=== PATIENT | male | born 1940 | race Caucasian/White ===

== ENCOUNTER 2017-05-17 10:45 | Inpatient (IN) ==
--- NOTE | 2017-05-17 11:02 | Emergency Department Note ---
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 Patients having difficulty speaking. Symptoms occurred around 0945. Patient woke up this morning without symptoms. About a quarter till 10 the noticed that he had difficulty speaking. It was snowing outside he was not able to say anything. Patient takes a baby aspirin. No history of trauma or fall. On physical exam patient has some expressive dysphasia without any focal neural deficits. No facial asymmetry. Initial NIH score 3 for dysarthria and dysphasia. Stroke alert was initiated. Patient's initial blood glucose 122. Onset of Symptoms Date: 05/17/17 Onset of Symptoms Time: 09:45 Symptom Onset Unknown: No Timing confirmed by: spouse () History of same: No Symptoms Improving: Yes On Anticoagulants: Yes (aspirin) Associated symptoms: Denies: confusion, chest pain, cough, diaphoresis, fever/ chills, headaches, loss of appetite, malaise, nausea/vomiting, seizures, shortness of breath, syncope, weakness - Related Data Home Medications: Home Medications Medication Instructions Recorded Confirmed Aspirin Enteric Coated [Aspirin EC] 162 mg PO BID 05/17/17 05/17/17 Cholecalciferol (Vitamin D3) 2,000 unit PO DAILY 05/17/17 05/17/17 [Vitamin D] Metoprolol [Lopressor] 50 mg PO BID 05/17/17 05/17/17 Pravastatin Sodium [Pravachol] 40 mg PO HS 05/17/17 05/17/17 Allergies/Adverse Reactions: Allergies Allergy/AdvReac Type Severity Reaction Status Date / Time No Known Allergies Allergy Verified 05/17/17 11:10 Limitations: ROS unobtainable due to patients medical condition Past Medical History - Past Medical History Source: obtained from family Medical history: Reports: other Psychiatric history: Reports: no psych history - Social History Smoking Status: Former smoker Smokeless Tobacco Status: No Alcohol use: Reports: none Physical Exam - General Limitations: other (expressive dysphasia, slurred speech) General appearance: alert, in no apparent distress - Head Head exam: atraumatic, normocephalic, normal inspection - Eye Eye exam: Present: normal appearance, PERRL, EOMI - ENT ENT exam: normal exam, normal oropharynx, mucous membranes moist - Expanded ENT Exam External ear exam: Present: normal external inspection Mouth exam: Present: normal external inspection, tongue normal, other (appears tongue deviates to right but able to move both directions, suspect normal anatomy) Teeth exam: Present: normal inspection Throat exam: Present: normal inspection - Neck Neck exam: Present: normal inspection, full ROM, trachea midline - Chest Chest inspection: Present: normal inspection, symmetric chest wall rise. Absent : tenderness, rash - Respiratory Respiratory exam: Present: normal lung sounds bilaterally. Absent: respiratory distress, wheezes - Cardiovascular Cardiovascular exam: Present: regular rate, normal rhythm, normal heart sounds. Absent: systolic murmur, diastolic murmur - Abdominal Exam Abdominal exam: Present: soft, Non-Tender, normal bowel sounds. Absent: tenderness, distention, guarding, rebound, rigidity - Extremities Exam Extremities exam: Present: normal inspection, full ROM. Absent: tenderness, pedal edema - Back Exam Back exam: Present: normal inspection, full ROM. Absent: tenderness - Neurological Exam Neurological exam: Present: alert, oriented X3, CN II-XII intact - Expanded Neurological Exam Patient oriented to: Present: person, place, time Speech: Present: expressive aphasia Cranial nerves: EOM function (II, III, IV, ): Normal, facial sensation (V): Normal, facial palsy (VII): Normal, gag reflex (IX): Normal, spinal accessory function (XI): Normal, tongue deviation (XII): Normal Cerebellar function: finger to nose: Normal, heel to [place]: Normal Motor strength - LUE: 5/5 Motor strength - RUE: 5/5 Motor strength - LLE: 5/5 Motor strength - RLE: 5/5 Upper motor neuron exam: jose neglect: Absent bilaterally, pronator drift: Absent bilaterally Sensory exam upper extremity: light touch: Normal Sensory exam lower extremity: light touch: Normal Coma Scale Eye Opening: Spontaneous Coma Scale Motor Response: Obeys Commands Coma Scale Verbal Response: Oriented Coma Scale Total: 15 - Psychiatric Psychiatric exam: Present: normal affect, normal mood - Skin Skin exam: Present: warm, dry, intact, normal color Course Course Narrative: 76-year-old male history of prior CVA/TIA presents with some expressive aphasia. Symptoms started within 2 hours prior to arrival. His initial NIH was scored 3. Initial head CT does not reveal any hemorrhagic stroke concern for possible chronic infarct. Reevaluation in the room patient's symptoms are improving as his words are more comprehendible. Awaiting evaluation by [facility] neurosurgery. - Consultations Consultation #1: Spoke with radiologist Dr. Cohn, chronic changes no acute infarct. Time: 11:22 Consultation #2: Spoke with [facility] neurosurgeon Dr. Rocha. 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 Patient takes Aspirin. Will speak on the telestroke Time: 11:38 Consultation #3: Spoke to the neurosurgeon from [facility] who evaluated the patient via telemedicine. NIH obtained 3. Patient speech has improved where words are becoming more clear. Because he was within the window he had recommended tPA. Discuss the risks and benefits with the patient and family. Specific numbers including a risk of 1 in 16 for head bleed with 50% of those patients who . This was discussed and from the family, patient as well as a neurosurgeon. My attending Dr. Magallanes had an even further in-depth discussion with the family. After long discussion with family and patient, the patient has decided to NOT take tPA as his symptoms are improving and NIH remains <4. He is capable of making medical decisions with his mental capacity. The family are in agreement with his decision. With shared decision making we have elected to NOT give tPA. Per the request of the neurosurgeon a CT of the head and neck ordered prior to discharge from [facility] department. Anticipate admission to internal medicine for further evaluation and workup. Additional Consultation(s): Patient admitted to hospitalist for further CVA workup. CTA neck and head reveal 50-60% stenosis of carotid arteries. Patient is in agreement with plan. Vital Signs Temperature 97.6 F 05/17/17 10:50 Pulse Rate 56 05/17/17 10:50 Respiratory Rate 18 05/17/17 10:50 Blood Pressure 167/75 05/17/17 10:50 O2 Sat by Pulse Oximetry 98 05/17/17 10:50 Temperature 97.8 F 05/17/17 19:46 Pulse Rate 52 05/17/17 19:46 Respiratory Rate 17 05/17/17 19:46 Blood Pressure 142/68 05/17/17 19:46 O2 Sat by Pulse Oximetry 97 05/17/17 19:46 Oxygen Delivery Oxygen Delivery Room Air Neuro Symptoms/Deficit - MDM Narrative Medical decision making narrative: Patient was discussed with my attending physician who agrees with ED management and final disposition. They independently evaluated the patient. Please refer to their attestation to this encounter for additional information. This note was generated by [employer] voice recognition software and as a result grammatical or spelling errors may occur using this program. - Medical Records Medical records reviewed: Yes I reviewed the patient's medical records. - Lab Data Lab results reviewed: Yes I reviewed the patient's lab results. Result diagrams: 05/17/17 11:14 05/17/17 11:14 Lab Results 05/17/17 05/17/17 05/17/17 Range/Units 10:49 11:14 11:14 WBC 8.2 (4.3-11.1) K/mcL RBC 4.96 (4.19-5.50) M/mcL Hgb 15.0 (12.9-16.9) g/dL Hct 44.3 (37.5-50.1) % MCV 89.3 (83.0-100.0) fL MCH 30.2 (28.0-33.3) pg MCHC 33.9 (31.6-35.5) g/dL RDW 13.2 (11.5-14.5) % Plt Count 148 (140-400) K/mcL MPV 11.2 (9.4-12.4) fL Immature Gran % 0.1 (0-4) % Seg Neutrophils % 52.4 % Lymphocytes % 31.2 % Monocytes % 9.5 % Eosinophils % 6.2 % Basophils % 0.6 % Neutrophils # 4.3 (1.6-8.9) K/mcL Lymphocytes # 2.6 (0.6-4.6) K/mcL Monocytes # 0.8 (0.0-1.3) K/mcL Eosinophils # 0.5 (0.0-0.6) K/mcL Basophils # 0.1 (0.0-0.2) K/mcL PT 12.1 (9.4-12.1) Seconds INR 1.1 APTT 30.4 (26.0-36.0) Seconds Sodium (136-145) mEq/L Potassium (3.5-4.5) mEq/L Chloride (98-109) mEq/L Carbon Dioxide (19-29) mEq/L BUN (8-26) mg/dL Creatinine (0.72-1.25) mg/dL Est GFR ( Amer) (> 60) Est GFR (Non-Af Amer) (> 60) BUN/Creatinine Ratio (6-26) Glucose (70-99) mg/dL POC Glucose 122 H (58-89) Calculated Osmolality (280-300) Calcium (8.6-10.8) mg/dL Phosphorus (2.3-4.7) mg/dL Magnesium (1.6-2.6) mg/dL Total Bilirubin (0.2-1.2) mg/dL Direct Bilirubin (0.0-0.5) mg/dL Indirect Bilirubin (0.0-1.2) mg/dL AST (5-34) Units/L ALT (0-55) Units/L Alkaline Phosphatase (38-126) Units/L Troponin I (0-0.03) ng/mL Serum Total Protein (6.0-8.3) g/dL Albumin (3.5-5.0) g/dL Globulin (2.4-3.5) g/dL Albumin/Globulin Ratio (1.1-2.2) Triglycerides (< 150) mg/dL Cholesterol (< 200) mg/dL LDL Cholesterol, Calc (0-99) mg/dL VLDL Cholesterol, Calc (< 31) mg/dL HDL Cholesterol (40-59) mg/dL Cholesterol/HDL Ratio (0-4.9) 05/17/17 05/17/17 05/17/17 Range/Units 11:14 11:14 17:03 WBC (4.3-11.1) K/mcL RBC (4.19-5.50) M/mcL Hgb (12.9-16.9) g/dL Hct (37.5-50.1) % MCV (83.0-100.0) fL MCH (28.0-33.3) pg MCHC (31.6-35.5) g/dL RDW (11.5-14.5) % Plt Count (140-400) K/mcL MPV (9.4-12.4) fL Immature Gran % (0-4) % Seg Neutrophils % % Lymphocytes % % Monocytes % % Eosinophils % % Basophils % % Neutrophils # (1.6-8.9) K/mcL Lymphocytes # (0.6-4.6) K/mcL Monocytes # (0.0-1.3) K/mcL Eosinophils # (0.0-0.6) K/mcL Basophils # (0.0-0.2) K/mcL PT (9.4-12.1) Seconds INR APTT (26.0-36.0) Seconds Sodium 142 (136-145) mEq/L Potassium 3.0 L (3.5-4.5) mEq/L Chloride 115 H (98-109) mEq/L Carbon Dioxide 21 (19-29) mEq/L BUN 10 (8-26) mg/dL Creatinine 0.76 (0.72-1.25) mg/dL Est GFR ( Amer) > 60 (> 60) Est GFR (Non-Af Amer) > 60 (> 60) BUN/Creatinine Ratio 13 (6-26) Glucose 86 (70-99) mg/dL POC Glucose (58-89) Calculated Osmolality 292 (280-300) Calcium 6.1 L (8.6-10.8) mg/dL Phosphorus 3.2 (2.3-4.7) mg/dL Magnesium 2.1 (1.6-2.6) mg/dL Total Bilirubin 0.9 (0.2-1.2) mg/dL Direct Bilirubin 0.3 (0.0-0.5) mg/dL Indirect Bilirubin 0.6 (0.0-1.2) mg/dL AST 12 (5-34) Units/L ALT 10 (0-55) Units/L Alkaline Phosphatase 41 (38-126) Units/L Troponin I 0.01 (0-0.03) ng/mL Serum Total Protein 4.7 L (6.0-8.3) g/dL Albumin 2.2 L (3.5-5.0) g/dL Globulin 2.5 (2.4-3.5) g/dL Albumin/Globulin Ratio 0.9 L (1.1-2.2) Triglycerides 114 (< 150) mg/dL Cholesterol 154 (< 200) mg/dL LDL Cholesterol, Calc 95 (0-99) mg/dL VLDL Cholesterol, Calc 23 (< 31) mg/dL HDL Cholesterol 36 L (40-59) mg/dL Cholesterol/HDL Ratio 4.3 (0-4.9) 05/17/17 Range/Units 17:03 WBC (4.3-11.1) K/mcL RBC (4.19-5.50) M/mcL Hgb (12.9-16.9) g/dL Hct (37.5-50.1) % MCV (83.0-100.0) fL MCH (28.0-33.3) pg MCHC (31.6-35.5) g/dL RDW (11.5-14.5) % Plt Count (140-400) K/mcL MPV (9.4-12.4) fL Immature Gran % (0-4) % Seg Neutrophils % % Lymphocytes % % Monocytes % % Eosinophils % % Basophils % % Neutrophils # (1.6-8.9) K/mcL Lymphocytes # (0.6-4.6) K/mcL Monocytes # (0.0-1.3) K/mcL Eosinophils # (0.0-0.6) K/mcL Basophils # (0.0-0.2) K/mcL PT (9.4-12.1) Seconds INR APTT (26.0-36.0) Seconds Sodium (136-145) mEq/L Potassium (3.5-4.5) mEq/L Chloride (98-109) mEq/L Carbon Dioxide (19-29) mEq/L BUN (8-26) mg/dL Creatinine (0.72-1.25) mg/dL Est GFR ( Amer) (> 60) Est GFR (Non-Af Amer) (> 60) BUN/Creatinine Ratio (6-26) Glucose (70-99) mg/dL POC Glucose (58-89) Calculated Osmolality (280-300) Calcium (8.6-10.8) mg/dL Phosphorus (2.3-4.7) mg/dL Magnesium (1.6-2.6) mg/dL Total Bilirubin (0.2-1.2) mg/dL Direct Bilirubin (0.0-0.5) mg/dL Indirect Bilirubin (0.0-1.2) mg/dL AST (5-34) Units/L ALT (0-55) Units/L Alkaline Phosphatase (38-126) Units/L Troponin I 0.02 (0-0.03) ng/mL Serum Total Protein (6.0-8.3) g/dL Albumin (3.5-5.0) g/dL Globulin (2.4-3.5) g/dL Albumin/Globulin Ratio (1.1-2.2) Triglycerides (< 150) mg/dL Cholesterol (< 200) mg/dL LDL Cholesterol, Calc (0-99) mg/dL VLDL Cholesterol, Calc (< 31) mg/dL HDL Cholesterol (40-59) mg/dL Cholesterol/HDL Ratio (0-4.9) - Radiology Data Radiology results reviewed: Yes I reviewed the patient's radiology results. Head CT 05/17/17 11:05 IMPRESSION: No acute intracranial abnormality. Diffuse parenchymal volume loss and sequela of mild to moderate chronic microvascular ischemic changes. Old bilateral basal ganglia and bilateral cerebellar lacunar infarctions. Left frontal lobe encephalomalacia compatible with prior infarction. Findings were discussed with Sanchez Alfred at 11:23 am on 05/17/2017. D/ / Ian Levine MD / Ian Levine MD Interpreting Provider: Ian Levine MD Head CTA 05/17/17 12:15 IMPRESSION: 1. Mild, less than 50%, stenosis of the right internal carotid artery by NASCET criteria. 2. Moderate, 50-69%, stenosis of the left internal carotid artery by NASCET criteria. 3. Mild narrowing of the bilateral posterior cerebral arteries. No intracranial aneurysm. D/ / 05/17/2017 14:08:30 Rima Douglass MD / earnold Interpreting Provider: Rima Douglass MD Neck CTA 05/17/17 12:15 IMPRESSION: 1. Mild, less than 50%, stenosis of the right internal carotid artery by NASCET criteria. 2. Moderate, 50-69%, stenosis of the left internal carotid artery by NASCET criteria. 3. Mild narrowing of the bilateral posterior cerebral arteries. No intracranial aneurysm. D/ / 05/17/2017 14:08:30 Rima Douglass MD / earnold Interpreting Provider: Rima Douglass MD - EKG Data EKG attestation: Yes I reviewed and interpreted this EKG. EKG results narrative: EKG performed 1053 normal sinus rhythm 56 bpm prologue MI interval to 12 no dropped beats, no ST elevations or depression, no T wave inversion, good R wave progression, normal axis, QRS 97 QT QTC 430 10/12/2026. Compared to old EKG form 07/29/2015 shows similar consistent findings. No acute ischemic changes. NIH Stroke Scale - Level of Consciousness LOC: Alert - LOC Questions LOC Questions: Answers both correctly - LOC Commands LOC Commands: Performs both correctly - Best Gaze Best Gaze: Normal - Visual Visual: No visual loss - Facial Palsy Facial Palsy: Normal - Motor Arms Motor Arm-Left: No drift for 10 seconds Motor Arm-Right: No drift for 10 seconds - Motor Legs Motor Leg-Left: No drift for 5 seconds Motor Leg-Right: No drift for 5 seconds - Limb Ataxia Limb Ataxia: Absent of affected limb too weak to perform exam - Sensory Sensory: Normal - Best Language Best Language: Mild to moderate aphasia. Examiner can identify picture from response - Dysarthria Dysarthria: Severe, slurred speech unintelligible or mute - Extinction and Inattention Extinction and Inattention: Normal - NIHSS Total Score NIHSS Total Score: 3 TPA Checklist - Source Information Source: Patient - Eligibilty for IV tPA 1. LKW equal to or less than 4.5 hours be before treatment: Yes 2. Clinical diagnosis of ischemic stroke causing deficit: Yes 3. Age 18 years or older: Yes - Contraindications 4. Evidence of intracranial hemorrhage on pretreatment CT: No 5. Presentation suggests subarachnoid hem, even if CT normal: No 6. CT shows multilobar infarction: No 7. Known neoplasm, arteriovenous malformation, or aneurysm: No 8. Significant head trauma (w/ LOC) or CVA in last 3 months: No 9. BP elevated (systolic > 185 or diastolic > 110): No 10. Abnormal Blood Glucose (<50 or >400mg/dl): No 11. Active internal bleeding [PM.TPA15]: No 12. Known bleeding risk (including; not limited to 13-15): No 13. Heparin/argatroban/bivalirudin w/in 48hrs & PTT > normal: No 14. Platelet count less than 100,000/MM3: No 15. Current or recent use of anticoagualants (see protocol): No - Warnings/Precautions Considerations 16. Prior ischemic stroke within last 3 months: No 17. Recent history of intracranial hemorrhage: No 18. : No 19. Current/recent use Effient (7 days) or Brilinta (5 days): No 20. Arterial puncture at non compressible site or LP >7days: No 21. Major surgery or serious trauma in last 14 days: No 22. GI or urinary tract hemorrhage in last 21 days: No 23. GA involving left anterior myocardium in last 3 months: No 24. Suspected or known infective endocarditis/pericarditis: No - LKW: 3-4.5 hrs Add. Warnings/Precautions 21. oral anticoag other than warfarin regardles of last dose: No Patient/family understanding: The patient/family members have been counseled and understood the risk, benefit , and alternatives of treatment. Due to his low NIH score in improvement of symptoms after long discussion with patient family and neurosurgery shared decision making to not administer tPA despite the recommendation by [facility] neurosurgery. Attestation Statement - Attestation Attestation: I examined this patient and my medical decision-making was reviewed with the Resident Physician. I agree with the documented findings, disposition and treatment plan as described except to the extent set forth below. states he was normal at 0945, then around 1000 she noticed he couldn't speak. No other deficits. Neuro exam normal except for expressive aphasia - tongue deviates mildly to the right when he sticks it out, but he moves it side to side normally. No facial droop appreciated. NIHSS 3, 1 for aphasia and 2 for dysarthria (debated how to score him in this component of the score). Stroke alert called per protocol, pt not a candidate for thrombolysis based on mild deficit (NIHSS < 4). 1215: Speech improved after return from CT scan, I dropped his NIH stroke score to [address], [address] Dee at [facility] still had not a 3. Dr. Dee recommended TPA. Dr. Dee and I had an in-depth discussion with the family at bedside regarding the pros and cons of TPA in this scenario. We addressed the current guidelines of an NIH score of at least 4, and the reasoning behind that; we discussed the number needed to treat based on the NINDS trial, also address the number needed to harm with bleeding based on the NINDS trial. Dr. Dee and I had no disagreement over these numbers. At this point, after a shared decision making process was completed, the patient has decided against TPA, and his agrees that he is comprehending our discussion and is capable of making this decision; she supports it. Dr. Dee recommended a CTA of the head and neck before he left the emergency department. These have been ordered. I anticipate the patient being admitted to internal medicine here at [place]. Critical care time: I was directly primarily involved in the care of this patient for 45 minutes excluding procedures.
[2017-05-17 11:23] LABS: Basophils # 0.1 K/mcL (0.0-0.2); Basophils % 0.6 %; Eosinophils # 0.5 K/mcL (0.0-0.6); Eosinophils % 6.2 %; Hematocrit 44.3 % (37.5-50.1); Immature Granulocytes % 0.1 % (0-4); Lymphocytes # 2.6 K/mcL (0.6-4.6); Lymphocytes % 31.2 %; Mean Corpuscular HGB Conc 33.9 g/dL (31.6-35.5); Mean Corpuscular Hemoglobin 30.2 pg (28.0-33.3); Mean Corpuscular Volume 89.3 fL (83.0-100.0); Mean Platelet Volume 11.2 fL (9.4-12.4); Monocytes # 0.8 K/mcL (0.0-1.3); Monocytes % 9.5 %; Neutrophils # 4.3 K/mcL (1.6-8.9); Platelet Count 148 K/mcL (140-400); Red Blood Count 4.96 M/mcL (4.19-5.50); Red Cell Distribution Width 13.2 % (11.5-14.5); Segmented Neutrophils % 52.4 %
[2017-05-17 11:28] LABS: INR 1.1; Prothrombin Time 12.1 Seconds (9.4-12.1)
[2017-05-17 11:31] LABS: Activated Partial Thrombo Time 30.4 Seconds (26.0-36.0)
[2017-05-17 11:35] LABS: BUN/Creatinine Ratio 13 (6-26); Blood Urea Nitrogen 10 mg/dL (8-26); Calcium 6.1 mg/dL (8.6-10.8); Carbon Dioxide 21 mEq/L (19-29); Chloride 115 mEq/L (98-109); Glucose 86 mg/dL (70-99); Osmolality,Calculated 292 (280-300); Sodium 142 mEq/L (136-145); eGFR For African Americans > 60 (> 60); eGFR For Non-African Americans > 60 (> 60)
--- NOTE | 2017-05-17 15:38 | Internal Med History&Physical ---
<Shaw Pabon - Last Filed: 05/17/17 18:09> Date of Encounter: 05/17/17 Time of Encounter: 15:37 Assessment and Plan (1) Cerebrovascular accident Current visit: Yes Status: Acute Mr. Womack 76-year-old male history of 3 strokes with his last known stroke in 2006 was admitted 05/17/2017 with new onset dysarthria and tongue deviating to the right correlating with acute stroke. Patient was seen by [facility] through telemetry stroke offered TPA but after discussion declined TPA administration. - he underwent CTA angiogram of the neck and had which demonstrated less than 50 % stenosis on the right internal carotid artery, moderate 50-69% stenosis left internal carotid artery and mild narrowing of bilateral posterior cerebral arteries. No intracranial aneurysms. -CT of the brain during code stroke demonstrated no acute intracranial abnormality. Diffuse parenchymal volume loss and sequelae of mild to moderate chronic microvascular ischemic changes. Old bilateral basal tingly and bilateral cerebellar lacunar infarcts. Left frontal lobe encephalomalacia compatible with prior infarct. -Physical exam demonstrates dysarthria, tongue deviation to the right. Plan: - Echocardiogram - MRI of the brain - Carotid duplex bilateral - Cardiac monitoring continuous - Stroke protocol initiated - Atorvastatin 40 mg by mouth daily - Consult placed to neurology, spoke with Dr. Mcnally after further discussion will start aspirin and Plavix at this time - Nothing by mouth, speech evaluation the morning - 75 ML/hr normal saline IV while patient is nothing by mouth. After ability to drink fluids - Continue neuro assessment Qualifiers: CVA mechanism: unspecified Qualified Code(s): I63.9 - Cerebral infarction, unspecified (2) Hx of stroke without residual deficits Current visit: Yes Status: Acute Patient is a history of 3 strokes, last known in 2006. Review of CT upon admission demonstrates there had been bilateral basal ganglia and bilateral cerebellar lacunar infarcts that I do not see on previous imaging from 2006. He may have had strokes without symptoms in the last 10 years. - Patient was only taking pravastatin and aspirin. (3) Hx of rheumatic heart disease Current visit: Yes Status: Acute History of rheumatic heart disease, bicuspid heart valve underwent procedure roughly 5 years ago. Patient has been stable since. (4) Hx of atrial fibrillation without current medication Current visit: Yes Status: Acute Patient is a history of atrial fibrillation roughly 5 years ago, underwent ablation denies any known arrhythmias in the last 5 years. (5) DVT prophylaxis Current visit: Yes Status: Acute SCDs Internal Medicine - H&P: HPI Chief complaint: Stroke Admitted From: Emergency Dept Plans for Post Hospital Care: Home History of present illness: Mr. oWmack is a 76 year old male past medical history of rheumatic heart disease post valvular repair, history of atrial fibrillation 5 years ago currently in sinus rhythm post-ablation multiple years ago, strokes 3 (last one 7 years ago), TIA presented to the emergency department after having acute onset difficulty with speech. The patient was sitting at home on a couch and when he stood up he was unable to speak. He denies losing consciousness, change in vision, weakness in any of his extremities or difficulty walking or loss of coordination. He denies any headaches, pain or any other noticeable symptoms. He maintains bladder and bowel control. He states that 15 minutes prior to this episode he was talking on the phone, this is supported by his family who are at bedside. Upon having difficulty with his speech he was brought to the emergency department where he was evaluated under a stroke alert by [facility] who recommended TPA. After discussing the risks versus benefits with the patient the patient opted to forego TPA therapy. I discussed this with the patient again at bedside for which he refused any TPA therapy. His family states they have seen some improvement in his speech and right-sided facial droop since presenting to the emergency department. Upon evaluation the patient has extreme difficulty trying to express what he wants to say but demonstrates understanding. He follows commands appropriately and is able to write out what he wants to say. Prior to admission he ambulated without assistance did not use any canes, Walker is her assistive devices and drove a car without difficulty. He has been taking pravastatin, aspirin and metoprolol daily. His family supports that he had an EKG yearly and has been in sinus rhythm. He denies any other changes recently to his health. Past Med Surg Social Fam HX - Past Medical History Medical history: other Psychiatric history: no psych history - Social History Smoking Status: Former smoker Smokeless Tobacco Status: No Alcohol use: none - Family History Mother Hx Family Cardiac Disorders: Yes (Heart disease) Brother Hx Family Cardiac Disorders: Yes (Open-heart surgery, heart disease) Sister Hx Family Endocrine Disorder: Yes (Diabetes) Internal Medicine - H&P: Meds Aspirin Enteric Coated [Aspirin EC] 162 mg PO BID 05/17/17 [History] Cholecalciferol (Vitamin D3) [Vitamin D] 2,000 unit PO DAILY 05/17/17 [History] Metoprolol [Lopressor] 50 mg PO BID 05/17/17 [History] Pravastatin Sodium [Pravachol] 40 mg PO HS 05/17/17 [History] 3 Allergy/AdvReac Type Severity Reaction Status Date / Time No Known Allergies Allergy Verified 05/17/17 11:10 All Systems PM: A 10-system review of systems was performed and is negative for pertinent findings except as documented above in the HPI. - Constitutional Constitutional: no chills, no fever(s), no night sweats - EENT Eyes: no blurry vision, no change in vision, no diplopia, no loss of peripheral vision, no loss of vision, no pain, no other visual disturbances Ears: no decreased hearing, no ear pain, no tinnitus Nose, mouth and throat: no change in voice, no dental pain, no dry mouth, no neck pain - Cardiovascular Cardiovascular ROS IM: no chest pain, no claudication, no palpitations, no syncope - Respiratory Respiratory: no cough, no dyspnea, no wheezing, no excessive phlegm production - Gastrointestinal Gastrointestinal: no abdominal pain, no diarrhea, no hematemesis, no hematochezia, no melena, no nausea, no vomiting - Genitourinary Genitourinary ROS male: no genital pain, no urinary frequency, no urinary urgency - Integumentary Integumentary IM: no rash - Neurological Neurological ROS: abnormal speech, no abnormal gait, no abnormal hearing, no abnormal movements, no behavioral changes, no confusion, no dizziness, no focal weakness, no frequent falls, no loss of vision, no memory loss, no paresthesias , no restless legs, no tremor(s), no weakness, no other visual disturbances Additional comments: Difficulty expressing speech, understands questions and a appropriately demonstrates answers. - Constitutional Vitals: Temp Pulse Resp BP Pulse Ox 97.6 F 51 18 143/59 97 05/17/17 10:50 05/17/17 14:07 05/17/17 14:07 05/17/17 14:07 05/17/17 14:07 General appearance: Present: cooperative, A&O X 3, pleasant, no acute distress - Head Head exam: Present: atraumatic, normocephalic - Eye Eye exam: Present: PERRL, conjuntiva pink, sclera anicteric Pupils: Present: PERRL - ENT ENT exam: Present: mucous membranes moist Additional comments: Tongue deviates to the right, right masseter muscle weakness compared to the left - Expanded ENT Exam Teeth exam: Present: dental caries Throat exam: Present: normal inspection. Absent: post pharyngeal edema, post pharyngeal erythema, tonsillar erythema - Neck Neck exam general surgery: Present: supple, trachea midline. Absent: lymphadenopathy - Respiratory Respiratory exam: Present: CTAB. Absent: accessory muscle use, rales, rhonchi, wheezes - Cardiovascular Cardiovascular exam: Present: RRR, +S1, +S2. Absent: diastolic murmur, gallop, rubs, systolic murmur - GI/Abdominal GI/Abdominal exam: Present: normal bowel sounds, soft, no peritoneal signs. Absent: distended, tenderness - Extremities Exam Extremities exam: Present: warm, radial pulses palpable and symmetrical. Absent : calf tenderness, cyanotic, pedal edema - Neurological Exam Neurological exam: Present: alert, oriented X3, no focal deficits. Absent: pronater drift, facial droop, speech deficit Additional comments: Cranial nerves II through XI are intact, cranial nerve XII demonstrated with tongue deviation to the right. Patient has difficulty expressing speech. Patient demonstrates appropriate coordination and 5 out of 5 upper and lower muscle strength. - Skin Skin exam: Present: dry, intact Internal Med - H&P Results - Labs CBC & Chem 7: 05/17/17 11:14 05/17/17 11:14 <Jad Rebolledo - Last Filed: 05/17/17 19:22> Date of Encounter: 05/17/17 Assessment and Plan (1) Cerebrovascular accident Current visit: Yes Status: Acute Qualifiers: CVA mechanism: thrombosis Precerebral and cerebral artery: middle cerebral artery Laterality of affected vessel: right Qualified Code(s): I63.311 - Cerebral infarction due to thrombosis of right middle cerebral artery (2) Hx of rheumatic heart disease Current visit: Yes Status: Acute (3) Hx of stroke without residual deficits Current visit: Yes Status: Acute (4) Hx of atrial fibrillation without current medication Current visit: Yes Status: Acute Internal Medicine - H&P: HPI History of present illness: Mr. Womack is a 76 year old male All Systems PM: A 10-system review of systems was performed and is negative for pertinent findings except as documented above in the HPI. - Constitutional Vitals: Temp Pulse Resp BP Pulse Ox 97.8 F 53 14 105/79 98 05/17/17 16:52 05/17/17 16:52 05/17/17 16:52 05/17/17 16:52 05/17/17 16:52 Internal Med - H&P Results - Labs CBC & Chem 7: 05/17/17 11:14 05/17/17 11:14 Labs: Cardiac Enzymes 05/17/17 Range/Units 17:03 Troponin I 0.02 (0-0.03) ng/mL - Attending Attestation I examined this patient and my medical decision-making was reviewed with the Resident Physician on 05/17/17. I agree with the documented findings, disposition and treatment plan as described except to the extent set forth below. Mr Womack is 76 y/o male with hx of prior CVA presented to ED with acute neuro issues. He was evaluated and was a stroke alert. After evaluating risks/ benefits he chose not to receive TPA. He is still having some dysarthria. Exam Alert. Comfortable Dysarthric Mucus membranes moist Tongue deviates R Heart reg with murmur Lungs clear Abd soft No edema I/P 1. Acute CVA 2. Hx a fib s/p ablation 3. Hx CVA Pt is high risk due to potential for worsening neuro symptoms. I have placed him inpatient as I anticipate he will be in hospital greater than 2 midnights.
[2017-05-17 16:04] LABS: Alanine Aminotransferase 10 Units/L (0-55); Albumin 2.2 g/dL (3.5-5.0); Albumin/Globulin Ratio 0.9 (1.1-2.2); Alkaline Phosphatase 41 Units/L (38-126); Aspartate Amino Transferase 12 Units/L (5-34); Bilirubin,Direct 0.3 mg/dL (0.0-0.5); Bilirubin,Indirect 0.6 mg/dL (0.0-1.2); Bilirubin,Total 0.9 mg/dL (0.2-1.2); Globulin 2.5 g/dL (2.4-3.5); Total Protein 4.7 g/dL (6.0-8.3)
[2017-05-17] MEDS ORDERED: Naloxone 0.4 MG/ML INJ IVP PRN (16:41)
[2017-05-17] MEDS ORDERED: Ondansetron ODT 4 MG TAB.RAPDIS SL PRN (16:46)
[2017-05-17] MEDS ORDERED: Acetaminophen 325 MG TABLET PO PRN (16:46)
[2017-05-17] MEDS ORDERED: 0.9 % Sodium Chloride 1,000 ML IVC SCH (17:00)
[2017-05-17 17:28] LABS: Chol/HDL Ratio 4.3 (0-4.9); Magnesium 2.1 mg/dL (1.6-2.6); Phosphorous 3.2 mg/dL (2.3-4.7)
--- NOTE | 2017-05-17 19:50 | Neurology - Consult Note ---
Date of Encounter: 05/17/17 Time of Encounter: 19:48 Assessment and Plan (1) Cerebrovascular accident Current Visit: Yes Status: Acute 76 year old man with PMH significant for paroxysmal atrial fibrillation, previous CVA, hyperlipidemia, CKD who developed acute onset of speech difficulty , with positive acute infarct involving left temporal cortex and right cerebellum, likely embolic phenomenon. Due to history of paroxysmal atrial fibrillation, his risk of recurrent infarct is considered to be high, CHADs2 score >3. would consider anticoagulation therapy preferably one of the NOACs. The sizes of the infarct are small and would not be considered contraindication for anticoagulation therapy. Will complete echocardiography and carotid artery doppler study. Can discontinue aspirin 81mg daily for reduce risk of bleeding. Sizes of stroke are small therefore neurological prognosis is good. Patient will benefit form group home rhythm monitoring. Cardiology consult recommended. Case discussed with medical team and agreed to start anticoagulation therapy Qualifiers: CVA mechanism: thrombosis Precerebral and cerebral artery: middle cerebral artery Laterality of affected vessel: bilateral Qualified Code(s): I63.313 - Cerebral infarction due to thrombosis of bilateral middle cerebral arteries History of Present Illness Chief complaint: speech difficulty HPI: Mr. Womack is a 76 year old male 76 year old man with PMH significant for paroxysmal atrial fibrillation, history of previous CVA who developed acute onset of speech difficulty this morning at 10am noticed by his . Went to ER and [facility] telemetry recommend no TPA due to rapid improvement and low NIH score of 3. Patient has history of paroxysmal atrial fibrillation and had been on anticoagulation therapy with coumadin for many years. He had 'ballon surgery' abut 5 years ago at [facility] which helped his atrial fibrillation but he was kept on coumadin until last year. He saw PCP Dr Maurilio Bar who ordered holter monitoring and found no evidence of atrial fibrillation and suggested to discontinue coumadin. Currently the patient is still in sinus rhythm and no evidence of atrial fibrillation. At the time of this interview, patient came back from MRI of brain, MRI of brain showed acute cerebral infarct involving the left temporal cortex and right cerebelum. This would suggest embolic phenomenon. Formal report is still pending. Past Med Surg Social Fam HX - Past Medical History Medical history: other Psychiatric history: no psych history - Social History Smoking Status: Former smoker Smokeless Tobacco Status: No Alcohol use: none Drug use: none - Family History Mother Hx Family Cardiac Disorders: Yes (Heart disease) Brother Hx Family Cardiac Disorders: Yes (Open-heart surgery, heart disease) Sister Hx Family Endocrine Disorder: Yes (Diabetes) Medications and Allergies Aspirin Enteric Coated [Aspirin EC] 162 mg PO BID 05/17/17 [History] Cholecalciferol (Vitamin D3) [Vitamin D] 2,000 unit PO DAILY 05/17/17 [History] Metoprolol [Lopressor] 50 mg PO BID 05/17/17 [History] Pravastatin Sodium [Pravachol] 40 mg PO HS 05/17/17 [History] 3 Allergy/AdvReac Type Severity Reaction Status Date / Time No Known Allergies Allergy Verified 05/17/17 11:10 All Systems: A 10-system review of systems was performed and is negative for pertinent findings except as documented above in the HPI. Physical Examination - Vital Signs Vital Signs: Initial Vital Signs Temp Pulse Resp BP Pulse Ox 97.6 F 56 18 167/75 98 05/17/17 10:50 05/17/17 10:50 05/17/17 10:50 05/17/17 10:50 05/17/17 10:50 - Constitutional General appearance: comfortable - Neurologic Detailed motor examination: full strength in all major muscle groups Motor examination - right side: 5/5: deltoids, biceps, triceps, wrist flexion, wrist extension, workers compensation specialist, hip flexors, tibialis Anterior, quadriceps, toe extension (EHL), plantarflexion Motor examination - left side: 5/5: deltoids, biceps, triceps, wrist flexion, wrist extension, hip flexors, workers compensation specialist, quadriceps, tibialis Anterior, toe extension (EHL), plantarflexion Detailed sensory examination: intact Reflex and gait examination: intact Reflexes: Biceps: 2+, Triceps: 2+, Brachioradialis: 2+, Patella: 2+, Achilles: 2 + Mental Status Examination: awake, alert, oriented to person, oriented to place, oriented to time, follows commands appropriately, answers questions appropriately, no agnosia, no aphasia, no aproxia, expressive aphasia Cranial nerve examination: PERRL, EOMI, visual benavides intact, corneal reflexes brisk symmetrically, sensory to face intact, mastication intact, no facial asymmetry is present, no dysarthria, hearing is intact symmetrically, soft palate elevates bilaterally upon phonation, gag reflex intact, flexes SCM and trapezius muscles symmetrically with full power, tongue protrudes midline, no atrophy or facial fasiculations present Results - Laboratory Findings CBC and BMP: 05/17/17 11:14 05/17/17 11:14 Abnormal lab findings: Abnormal lab results Potassium 3.0 mEq/L (3.5-4.5) L 05/17/17 11:14 Chloride 115 mEq/L (98-109) H 05/17/17 11:14 POC Glucose 122 (58-89) H 05/17/17 10:49 Calcium 6.1 mg/dL (8.6-10.8) L 05/17/17 11:14 Serum Total Protein 4.7 g/dL (6.0-8.3) L 05/17/17 11:14 Albumin 2.2 g/dL (3.5-5.0) L 05/17/17 11:14 Albumin/Globulin Ratio 0.9 (1.1-2.2) L 05/17/17 11:14 HDL Cholesterol 36 mg/dL (40-59) L 05/17/17 17:03 Consult Discharge Plan - Plan Referrals: Maurilio Bar MD [Primary Care Provider] -
[2017-05-17] MEDS ORDERED: Aspirin Enteric Coated 81 MG Tablet PO SCH (21:00)
[2017-05-18] MEDS ORDERED: *HR* Heparin 5,000 UNIT/ML VIAL SQ SCH (06:00)
[2017-05-18 06:07] LABS: Basophils % 0.3 %; Eosinophils # 0.5 K/mcL (0.0-0.6); Eosinophils % 5.4 %; Hematocrit 44.2 % (37.5-50.1); Hemoglobin 14.7 g/dL (12.9-16.9); Immature Granulocytes % 0.1 % (0-4); Lymphocytes # 2.6 K/mcL (0.6-4.6); Lymphocytes % 29.2 %; Mean Corpuscular HGB Conc 33.3 g/dL (31.6-35.5); Mean Corpuscular Hemoglobin 29.6 pg (28.0-33.3); Mean Corpuscular Volume 89.1 fL (83.0-100.0); Mean Platelet Volume 11.5 fL (9.4-12.4); Monocytes # 0.8 K/mcL (0.0-1.3); Monocytes % 8.9 %; Neutrophils # 4.9 K/mcL (1.6-8.9); Platelet Count 145 K/mcL (140-400); Red Blood Count 4.96 M/mcL (4.19-5.50); Red Cell Distribution Width 13.2 % (11.5-14.5); Segmented Neutrophils % 56.1 %
[2017-05-18 06:20] LABS: BUN/Creatinine Ratio 10 (6-26); Blood Urea Nitrogen 12 mg/dL (8-26); Calcium 8.7 mg/dL (8.6-10.8); Carbon Dioxide 23 mEq/L (19-29); Chloride 105 mEq/L (98-109); Glucose 101 mg/dL (70-99); Osmolality,Calculated 290 (280-300); Potassium 3.8 mEq/L (3.5-4.5); Sodium 140 mEq/L (136-145); eGFR For African Americans > 60 (> 60); eGFR For Non-African Americans > 60 (> 60)
--- NOTE | 2017-05-18 07:34 | Electrocardiograph Report ---
[facility] Test Date: 2017-05-17 Pat Name: Chaz Womack Department: [id number] Room: 2NE30 Gender: M [employer]aster: : 1940 Requested By: Jam Magallanes Order Number: [id number] Reading MD: Trupti Sam DO Measurements Intervals [place] Rate: 56 P: 51 DC: 212 QRS: 58 QRSD: 97 T: 38 QT: 435 QTc: 427 Interpretive Statements SINUS BRADYCARDIA WITH FIRST DEGREE AV BLOCK Electronically Signed On 05-18-2017 7:32:56 EST by Trupti Sam DO
--- NOTE | 2017-05-18 08:32 | Internal Med Progress Note ---
<Shaw Pabon - Last Filed: 05/18/17 15:44> Date of Encounter: 05/18/17 Time of Encounter: 08:31 - Assessment and plan (1) Cerebrovascular accident Current Visit: Yes Status: Acute Assessment and plan: Mr. Womack 76-year-old male history of 3 strokes with his last known stroke in 2006 was admitted 05/17/2017 with new onset dysarthria and tongue deviating to the right correlating with acute stroke. Patient was seen by [facility] through telemetry stroke offered TPA but after discussion declined TPA administration. - he underwent CTA angiogram of the neck and had which demonstrated less than 50 % stenosis on the right internal carotid artery, moderate 50-69% stenosis left internal carotid artery and mild narrowing of bilateral posterior cerebral arteries. No intracranial aneurysms. -CT of the brain during code stroke demonstrated no acute intracranial abnormality. Diffuse parenchymal volume loss and sequelae of mild to moderate chronic microvascular ischemic changes. Old bilateral basal tingly and bilateral cerebellar lacunar infarcts. Left frontal lobe encephalomalacia compatible with prior infarct. -Physical exam demonstrates dysarthria, tongue deviation to the right. 05/18: Patient is stable, no progression in symptoms since admission. He has been seen by speech therapy and recommended mechanical soft and thin liquids. - Carotid duplex reviewed, nonsignificant carotid stenosis -Multiple small right cerebellar acute infarcts, Left posterior frontal cortical acute infarct is also noted with a small amount of adjacent edema. Multifocal small-vessel ischemic changes bilaterally with several small prior infarcts - Echocardiogram demonstrates valvular dysfunction - Cardiology evaluated the patient, possible proximal atrial fibrillation. Plan for follow-up with cardiology in 6-8 weeks. Plan: - Continue inpatient speech therapy, patient will require outpatient speech therapy for continued improvement. - Cardiac monitoring continuous - Atorvastatin 40 mg by mouth daily - Start heparin bridging and warfarin therapy chronically. 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 Review of CT upon admission demonstrates there had been bilateral basal ganglia and bilateral cerebellar lacunar infarcts that I do not see on previous imaging from 2006. He may have had strokes without symptoms in the last 10 years. - Patient was only taking pravastatin and aspirin. (3) Hx of rheumatic heart disease Current Visit: Yes Status: Acute Assessment and plan: History of rheumatic heart disease, bicuspid heart valve underwent procedure roughly 5 years ago. Patient has been stable since. (4) Hx of atrial fibrillation without current medication Current Visit: Yes Status: Acute Assessment and plan: Patient is a history of atrial fibrillation roughly 5 years ago, underwent ablation denies any known arrhythmias in the last 5 years. (5) DVT prophylaxis Current Visit: Yes Status: Acute Assessment and plan: SCDs - Subjective Interval history: Mr. Womack is been seen and evaluated inpatient bedroom this morning. He is alert awake oriented sitting up in his chair. He continues to have difficulty with speech but minor improvement. He still continues to have deviation to his tongue to the right and minor facial droop. The plan, use of anticoagulation and follow-up were discussed with Mr. Womack. He understands we are bridging him to Coumadin daily. He does demonstrate some frustration as he is having difficulty verbally expressing his questions. - Constitutional Vitals: Temp Pulse Resp BP Pulse Ox 98.1 F 68 16 125/61 97 05/18/17 06:48 05/18/17 06:48 05/18/17 06:48 05/18/17 06:48 05/18/17 06:48 General appearance: Present: cooperative, A&O X 3, pleasant, no acute distress - Head Head exam: Present: atraumatic, normocephalic - Eye Eye exam: Present: PERRL, conjuntiva pink, sclera anicteric Pupils: Present: PERRL - Neck Neck exam general surgery: Present: supple, trachea midline. Absent: lymphadenopathy - Respiratory Respiratory exam: Present: CTAB. Absent: accessory muscle use, rales, rhonchi, wheezes - Cardiovascular Cardiovascular exam: Present: RRR, +S1, +S2. Absent: diastolic murmur, gallop, rubs, systolic murmur - GI/Abdominal GI/Abdominal exam: Present: normal bowel sounds, soft, no peritoneal signs. Absent: distended, tenderness - Extremities Exam Extremities exam: Present: warm, radial pulses palpable and symmetrical. Absent : calf tenderness, cyanotic, pedal edema - Neurological Exam Neurological exam: Present: oriented X3, pronater drift, facial droop Additional comments: abnormal speech, no abnormal gait, no abnormal hearing, no abnormal movements, no behavioral changes, no confusion, no dizziness, no focal weakness, no frequent falls, no loss of vision, no memory loss, no paresthesias, no restless legs, no tremor(s), no weakness, no other visual disturbances. Difficulty expressing speech, understands questions and a appropriately demonstrates answers. - Skin Skin exam: Present: dry, intact Internal Medicine: Result - Labs CBC & Chem 7: 05/18/17 05:35 05/18/17 05:35 Labs: Short CBC 05/18/17 Range/Units 05:35 WBC 8.8 (4.3-11.1) K/mcL Hgb 14.7 (12.9-16.9) g/dL Hct 44.2 (37.5-50.1) % Plt Count 145 (140-400) K/mcL Neutrophils # 4.9 (1.6-8.9) K/mcL BMP 05/18/17 05:35 Sodium 140 Potassium 3.8 Chloride 105 Carbon Dioxide 23 BUN 12 Creatinine 1.16 D Glucose 101 H Calcium 8.7 D - ABG Interpretation ABG results: PT/INR, D-dimer PT 12.1 Seconds (9.4-12.1) 05/17/17 11:14 Consult Discharge Plan - Plan Referrals: Maurilio Bar MD [Primary Care Provider] - 05/25/17 11:30 am Prescriptions: Apixaban [Eliquis] 5 mg PO BID #60 tablet <Jad Rebolledo A - Last Filed: 05/18/17 16:14> Date of Encounter: 05/18/17 - Assessment and plan (1) Cerebrovascular accident Current Visit: Yes Status: Acute Qualifiers: CVA mechanism: thrombosis Precerebral and cerebral artery: middle cerebral artery Laterality of affected vessel: left Qualified Code(s): I63.312 - Cerebral infarction due to thrombosis of left middle cerebral artery (2) CVA (cerebral vascular accident) Current Visit: Yes Status: Acute Qualifiers: CVA mechanism: thrombosis Precerebral and cerebral artery: cerebellar artery Laterality of affected vessel: right Qualified Code(s): I63.341 - Cerebral infarction due to thrombosis of right cerebellar artery (3) Expressive aphasia Current Visit: Yes Status: Acute (4) Paroxysmal A-fib Current Visit: Yes Status: Suspected Assessment and plan: On tele monitor. (5) Mitral stenosis Current Visit: Yes Status: Acute Qualifiers: Cardiac valve disease etiology: rheumatic Qualified Code(s): I05.0 - Rheumatic mitral stenosis (6) Hx of rheumatic heart disease Current Visit: Yes Status: Acute (7) Hx of stroke without residual deficits Current Visit: Yes Status: Acute (8) Hx of atrial fibrillation without current medication Current Visit: Yes Status: Acute - Constitutional Vitals: Temp Pulse Resp BP Pulse Ox 98 F 56 16 136/68 98 05/18/17 15:46 05/18/17 15:46 05/18/17 15:46 05/18/17 15:46 05/18/17 15:46 Internal Medicine: Result - Labs CBC & Chem 7: 05/18/17 05:35 05/18/17 05:35 Labs: Short CBC 05/18/17 Range/Units 05:35 WBC 8.8 (4.3-11.1) K/mcL Hgb 14.7 (12.9-16.9) g/dL Hct 44.2 (37.5-50.1) % Plt Count 145 (140-400) K/mcL Neutrophils # 4.9 (1.6-8.9) K/mcL BMP 05/18/17 05:35 Sodium 140 Potassium 3.8 Chloride 105 Carbon Dioxide 23 BUN 12 Creatinine 1.16 D Glucose 101 H Calcium 8.7 D - ABG Interpretation ABG results: PT/INR, D-dimer PT 12.1 Seconds (9.4-12.1) 05/17/17 11:14 - Attending Attestation I examined this patient and my medical decision-making was reviewed with the Resident Physician on 05/18/17. I agree with the documented findings, disposition and treatment plan as described except to the extent set forth below. Mr. Womack is currently admitted for acute CVA presumed related to parox a fib. He remains moderate to high risk due to potential for worsening neurologic status. Mr. Womack still has some dysarthria and aphasia. He has had no new neuro issues. No fever or chills. Echo has showed valvular disease including mitral stenosis. He has been transitioned to heparin and coumadin as he is not a candidate for NOAC. Exam Alert. Comfortable Mucus membranes dry Heart reg with systolic murmur Lungs clear Neuro status about the same. I/P 1. CVA 2. Probable parox a fib Further diagnoses and plan as above.
[2017-05-18] MEDS ORDERED: APIXABAN 5 MG TABLET PO SCH (10:30)
--- NOTE | 2017-05-18 10:34 | Cardiology Consult Note ---
Date of Encounter: 05/18/17 Time of Encounter: 10:32 Assessment and Plan (1) Cerebrovascular accident Current Visit: Yes Status: Acute AC as per neurlogy, ECHO to rule out valvular afib, coumadin would likely be best option until done unles there is a contraindication. 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 currently in NSR, event montior as an OP and f/u with cardio 4-6 weeks Discussion w patient/family: The assessment and plan as outlined above was discussed with the patient and/or family members who expressed understanding and agreement. All questions were answered. Thank you for involving us in the care of your patient. Please call with any questions. History of Present Illness Consult date: 05/18/17 Consult reason: CVA Chief complaint: Difficulty with speech History of present illness: Mr. Womack is a 76 year old male with h/o Afib s/p ablation 5 years ago at [facility] presents with CVA followed by Neurology concerned for afib as the culprit. Agree with AC as per neurology and will obtain event monitor as an OP with f/u with cardiology. ECHO pending, THERESA only if event unremarkable to visulaize DEMETRIO. Currently in NSR, denies palpitation. Past Med Surg Social Fam HX - Past Medical History Medical history: other Psychiatric history: no psych history - Social History Smoking Status: Former smoker Smokeless Tobacco Status: No Alcohol use: none Drug use: none - Family History Mother Hx Family Cardiac Disorders: Yes (Heart disease) Brother Hx Family Cardiac Disorders: Yes (Open-heart surgery, heart disease) Sister Hx Family Endocrine Disorder: Yes (Diabetes) Medications and Allergies Aspirin Enteric Coated [Aspirin EC] 162 mg PO BID 05/17/17 [History] Cholecalciferol (Vitamin D3) [Vitamin D] 2,000 unit PO DAILY 05/17/17 [History] Metoprolol [Lopressor] 50 mg PO BID 05/17/17 [History] Pravastatin Sodium [Pravachol] 40 mg PO HS 05/17/17 [History] Apixaban [Eliquis] 5 mg PO BID #60 tablet 05/18/17 [Rx] 3 Allergy/AdvReac Type Severity Reaction Status Date / Time No Known Allergies Allergy Verified 05/17/17 11:10 All Systems Review: A 10-system review of systems was performed and is negative for pertinent findings except as documented above in the HPI. Physical Examination Vital Signs, Last 4 Hours Temp Pulse Resp BP Pulse Ox 05/18/17 06:48 98.1 F 68 16 125/61 97 General: Conversant, No Apparent Distress HEENT: Atraumatic, Normocephaly, Mucus Membranes Moist Neck: No JVD, Normal carotid pulses Cardiac: Reg Rate and Rhythm, Normal S1 and S2, No Murmur Lungs: Normal Breath Sounds, No Wheeze, Rales, Rhonchi Neuro: Alert and responsive, No focal deficits noted Abdomen: Soft, Non-Tender Skin: No rashes noted on visualized skin Musculoskeletal: No Chest Wall Tenderness Extremities: No Clubbing, No Cyanosis, No Edema, Normal Pulses Results 05/18/17 05:35 05/18/17 05:35 Lab Results 05/18/17 05/18/17 05:35 05:35 WBC 8.8 Hgb 14.7 Hct 44.2 Plt Count 145 Sodium 140 Potassium 3.8 Chloride 105 Carbon Dioxide 23 BUN 12 Creatinine 1.16 D Glucose 101 H Calcium 8.7 D Consult Discharge Plan - Plan Referrals: Maurilio Bar MD [Primary Care Provider] - 05/25/17 11:30 am Prescriptions: Apixaban [Eliquis] 5 mg PO BID #60 tablet
[2017-05-18] MEDS ORDERED: *HR* Heparin 5,000 UNIT/ML VIAL IVP PRN ×4 (11:15→21:00)
[2017-05-18] MEDS ORDERED: Heparin 25,000 UNIT/500 ML D5W 25,000 UNIT/500 ML MLS IVC SCH (11:15)
[2017-05-18] MEDS ORDERED: *HR* Heparin 5,000 UNIT/ML VIAL IVP ONE (11:15)
--- NOTE | 2017-05-18 11:25 | Event Note ---
Date of Encounter: 05/18/17 Time of Encounter: 11:20 - Cardiology Event Note Echo reviewed and discussed with Dr. Valle, patient received Eliquis this am. Valvular heart disease noted on echo. Discontinue Eliquis. Plan to initiate IV heparin drip at 9 PM this evening. Recommendations for bridging until INR therapeutic with target goal 2.0-3.0. We'll start Coumadin tomorrow with pharmacy to dose. Discussed with primary service. Follow-up with cardiology scheduled in 4-6 weeks. We'll sign off, reconsult as needed.
--- NOTE | 2017-05-18 15:07 | Neurology Progress Note ---
Date of Encounter: 05/18/17 Time of Encounter: 15:05 Assessment and Plan (1) Cerebrovascular accident Current Visit: Yes Status: Acute 76 year old man with PMH significant for paroxysmal atrial fibrillation, previous CVA, hyperlipidemia, CKD who developed acute onset of speech difficulty , with positive acute infarct involving left temporal cortex and right cerebellum, likely embolic phenomenon. Patient has valvular disease secondary to history of Rheumatic fever and is eligible for anticoagulation with Coumadin , via Heparin bridge. Agree with Coumadin and aspirin 81mg daily for secondary CVA prevention. Sizes of stroke are small and is expecting his speech to improve. Residual speech difficulty with long complex sentences may persist. Please continue medical and supportive care. 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 His speech deficits is still present, able to repeat but does have expressive dysphasia, no changes from yesterday. No significant weakness. Slight loss of dexterity to the right side noted. No headaches. Patient seen by Cardiology who suggested Coumadin instead of Eliquis. Agree with the change. Echocardiography report read. Objective - Constitutional Vitals: Temp Pulse Resp BP Pulse Ox 97.5 F L 50 16 146/73 97 05/18/17 11:26 05/18/17 11:26 05/18/17 11:26 05/18/17 11:26 05/18/17 11:26 - Neurological Exam Motor Examination: Present: full strength in all major muscle groups Motor examination - left side: 5/5: deltoids, biceps, triceps, wrist flexion, wrist extension, hip flexors, film examiner, quadriceps, tibialis Anterior, toe extension (EHL), plantarflexion Sensation intact: Present: intact Reflex and gait examination: intact Mental Status Examination: Present: awake, alert, oriented to person, oriented to place, oriented to time, follows commands appropriately, answers questions appropriately, no agnosia, no aphasia, no aproxia, expressive aphasia Cranial nerve examination: Present: PERRL, EOMI, visual benavides intact, corneal reflexes brisk symmetrically, sensory to face intact, mastication intact, no facial asymmetry is present, no dysarthria, hearing is intact symmetrically, soft palate elevates bilaterally upon phonation, gag reflex intact, flexes SCM and trapezius muscles symmetrically with full power, tongue protrudes midline, no atrophy or facial fasiculations present Results - Laboratory Findings CBC and BMP: 05/18/17 05:35 05/18/17 05:35 Abnormal lab findings: Abnormal lab results Glucose 101 mg/dL (70-99) H 05/18/17 05:35 POC Glucose 122 (58-89) H 05/17/17 10:49 Serum Total Protein 4.7 g/dL (6.0-8.3) L 05/17/17 11:14 Albumin 2.2 g/dL (3.5-5.0) L 05/17/17 11:14 Albumin/Globulin Ratio 0.9 (1.1-2.2) L 05/17/17 11:14 HDL Cholesterol 36 mg/dL (40-59) L 05/17/17 17:03 Consult Discharge Plan - Plan Referrals: Maurilio Bar MD [Primary Care Provider] - 05/25/17 11:30 am Prescriptions: Apixaban [Eliquis] 5 mg PO BID #60 tablet
[2017-05-18] MEDS ORDERED: Warfarin perPT PO PRN (18:00)
[2017-05-18] MEDS: Heparin 25,000 UNIT/500 ML D5W 25,000 UNIT/500 ML MLS IVC SCH (22:01)
[2017-05-19 04:43] LABS: Basophils % 0.3 %; Eosinophils # 0.6 K/mcL (0.0-0.6); Eosinophils % 5.5 %; Hematocrit 44.6 % (37.5-50.1); Hemoglobin 15.6 g/dL (12.9-16.9); Immature Granulocytes % 0.2 % (0-4); Lymphocytes # 3.3 K/mcL (0.6-4.6); Lymphocytes % 32.7 %; Mean Corpuscular Hemoglobin 30.9 pg (28.0-33.3); Mean Corpuscular Volume 88.3 fL (83.0-100.0); Mean Platelet Volume 11.2 fL (9.4-12.4); Monocytes # 0.9 K/mcL (0.0-1.3); Monocytes % 8.7 %; Neutrophils # 5.4 K/mcL (1.6-8.9); Platelet Count 141 K/mcL (140-400); Red Blood Count 5.05 M/mcL (4.19-5.50); Red Cell Distribution Width 13.2 % (11.5-14.5); Segmented Neutrophils % 52.6 %
[2017-05-19 04:49] LABS: INR 1.2; Prothrombin Time 12.5 Seconds (9.4-12.1)
[2017-05-19 04:55] LABS: Alanine Aminotransferase 12 Units/L (0-55); Albumin/Globulin Ratio 0.9 (1.1-2.2); Alkaline Phosphatase 59 Units/L (38-126); Aspartate Amino Transferase 17 Units/L (5-34); BUN/Creatinine Ratio 10 (6-26); Blood Urea Nitrogen 12 mg/dL (8-26); Calcium 9.1 mg/dL (8.6-10.8); Carbon Dioxide 26 mEq/L (19-29); Chloride 105 mEq/L (98-109); Globulin 3.7 g/dL (2.4-3.5); Glucose 111 mg/dL (70-99); Osmolality,Calculated 290 (280-300); Potassium 3.9 mEq/L (3.5-4.5); Sodium 140 mEq/L (136-145); eGFR For African Americans > 60 (> 60); eGFR For Non-African Americans 59 (> 60)
[2017-05-19 04:56] LABS: Albumin 3.2 g/dL (3.5-5.0); Bilirubin,Total 1.5 mg/dL (0.2-1.2); Total Protein 6.9 g/dL (6.0-8.3)
[2017-05-19 05:09] LABS: Activated Partial Thrombo Time 122.3 Seconds (26.0-36.0)
[2017-05-19 05:17] LABS: Heparin anti-factor XA UFH 0.85 IU/mL (0.30-0.70)
[2017-05-19] MEDS: Aspirin Enteric Coated 81 MG Tablet PO SCH (08:49)
--- NOTE | 2017-05-19 11:00 | Internal Med Progress Note ---
Date of Encounter: 05/19/17 Time of Encounter: 09:45 - Assessment and plan (1) Cerebrovascular accident Current Visit: Yes Status: Acute Assessment and plan: Acute bilateral CVAs. Deficit appears to be more speech related. Most likely related to cardiac dysrhythmia. Nothing noted on monitor at this time. Due to valvular disease is now on heparin/coumadin. Not therapeutic on coumadin yet. Qualifiers: CVA mechanism: thrombosis Precerebral and cerebral artery: middle cerebral artery Laterality of affected vessel: left Qualified Code(s): I63.312 - Cerebral infarction due to thrombosis of left middle cerebral artery (2) CVA (cerebral vascular accident) Current Visit: Yes Status: Acute Assessment and plan: See above. Will make sure he has PT/OT assessment due to cerebellar injury. Qualifiers: CVA mechanism: thrombosis Precerebral and cerebral artery: cerebellar artery Laterality of affected vessel: right Qualified Code(s): I63.341 - Cerebral infarction due to thrombosis of right cerebellar artery (3) Expressive aphasia Current Visit: Yes Status: Acute Assessment and plan: Clinically about the same today. Continue supportive care and speech therapy. (4) Paroxysmal A-fib Current Visit: Yes Status: Suspected Assessment and plan: Nothing noted on tele. Due to mitral stenosis will need to be on coumadin (not Eliquis) and is bridging with heparin IV. Will most likely need further monitoring as outpatient. (5) Mitral stenosis Current Visit: Yes Status: Chronic Assessment and plan: Supportive care. Qualifiers: Cardiac valve disease etiology: rheumatic Qualified Code(s): I05.0 - Rheumatic mitral stenosis (6) Hx of rheumatic heart disease Current Visit: Yes Status: Chronic Assessment and plan: History of rheumatic heart disease, bicuspid heart valve underwent procedure roughly 5 years ago. Patient has been stable since. (7) Hx of stroke without residual deficits Current Visit: Yes Status: Acute Assessment and plan: Patient is a history of 3 strokes, last known in [address]. Review [address] upon admission demonstrates there had been bilateral basal ganglia and bilateral cerebellar lacunar infarcts that I do not see on previous imaging from 2006. He may have had strokes without symptoms in the last 10 years. - Patient was only taking pravastatin and aspirin. (8) Hx of atrial fibrillation without current medication Current Visit: Yes Status: Acute Assessment and plan: Patient is a history of atrial fibrillation roughly 5 years ago, underwent ablation denies any known arrhythmias in the last 5 years. - Subjective Interval history: Mr. Womack is currently admitted for bilateral acute CVA. He remains moderate to high risk due to potential for worsening neurologic symptoms and need for IV heparin. Mr Womack feels OK at this time. He is still having issues with dysarthria and aphasia. He is on IV heparin and coumadin. INR only 1.2 today. No fever or chills. No CP or SOB. Ambulating without difficulty at this time. - Constitutional Vitals: Temp Pulse Resp BP Pulse Ox 97.7 F 80 14 126/75 93 05/19/17 07:13 05/19/17 07:13 05/19/17 07:13 05/19/17 07:13 05/19/17 07:13 General appearance: Present: cooperative, A&O X 3, pleasant - Head Head exam: Present: atraumatic, normocephalic - Eye Eye exam: Present: EOMI, conjuntiva pink - ENT ENT exam: Present: mucous membranes moist - Respiratory Respiratory exam: Present: CTAB. Absent: rales, rhonchi, wheezes - Cardiovascular Cardiovascular exam: Present: RRR, systolic murmur. Absent: tachycardia - GI/Abdominal GI/Abdominal exam: Present: normal bowel sounds, soft. Absent: tenderness - Extremities Exam Extremities exam: Present: warm. Absent: tenderness - Neurological Exam Neurological exam: Present: alert, oriented X3, speech deficit. Absent: no focal deficits - Skin Skin exam: Present: dry, intact, warm. Absent: rash Internal Medicine: Result - Labs CBC & Chem 7: 05/19/17 04:19 05/19/17 04:19 Labs: Short CBC 05/19/17 Range/Units 04:19 WBC 10.2 (4.3-11.1) K/mcL Hgb 15.6 (12.9-16.9) g/dL Hct 44.6 (37.5-50.1) % Plt Count 141 (140-400) K/mcL Neutrophils # 5.4 (1.6-8.9) K/mcL BMP 05/19/17 04:19 Sodium 140 Potassium 3.9 Chloride 105 Carbon Dioxide 26 BUN 12 Creatinine 1.19 Glucose 111 H Calcium 9.1 Liver Function 05/19/17 Range/Units 04:19 Total Bilirubin 1.5 H D (0.2-1.2) mg/dL AST 17 (5-34) Units/L ALT 12 (0-55) Units/L Alkaline Phosphatase 59 (38-126) Units/L Albumin 3.2 L D (3.5-5.0) g/dL - ABG Interpretation ABG results: PT/INR, D-dimer PT 12.5 Seconds (9.4-12.1) H 05/19/17 04:19 Consult Discharge Plan - Plan Referrals: Maurilio Bar MD [Primary Care Provider] - 05/25/17 11:30 am Prescriptions: Apixaban [Eliquis] 5 mg PO BID #60 tablet
[2017-05-19] MEDS ORDERED: *HR* Warfarin 5 MG TABLET PO ONE (18:00)
[2017-05-19] MEDS: Heparin 25,000 UNIT/500 ML D5W 25,000 UNIT/500 ML MLS IVC SCH (23:03)
[2017-05-20 04:44] LABS: INR 1.2
[2017-05-20] MEDS: Aspirin Enteric Coated 81 MG Tablet PO SCH (08:50)
--- NOTE | 2017-05-20 14:17 | Internal Med Progress Note ---
<Ketty Restrepo - Last Filed: 05/20/17 14:03> Date of Encounter: 05/20/17 Time of Encounter: 14:03 - Assessment and plan (1) Cerebrovascular accident Current Visit: Yes Status: Acute Assessment and plan: Acute bilateral CVAs as seen on MRI . Deficit appears to be more speech related. Most likely related to cardiac dysrhythmia, patient has history of atrial fibrillation, no events on monitor. Due to valvular disease is now on heparin/coumadin. Remains subtherapeutic today. Will continue to monitor. Due to involvement of cerebellum, will have evaluated by PT/OT prior to discharge Qualifiers: CVA mechanism: thrombosis Precerebral and cerebral artery: middle cerebral artery Laterality of affected vessel: left Qualified Code(s): I63.312 - Cerebral infarction due to thrombosis of left middle cerebral artery (2) Expressive aphasia Current Visit: Yes Status: Acute Assessment and plan: Clinically about the same today. Continue supportive care and speech therapy. (3) Paroxysmal A-fib Current Visit: Yes Status: Suspected Assessment and plan: No events on telemetry. Due to mitral stenosis will need to be on coumadin (not Eliquis) and is bridging with heparin IV. Will most likely need further monitoring as outpatient. (4) Mitral stenosis Current Visit: Yes Status: Chronic Assessment and plan: Supportive care. Qualifiers: Cardiac valve disease etiology: rheumatic Qualified Code(s): I05.0 - Rheumatic mitral stenosis (5) Hx of rheumatic heart disease Current Visit: Yes Status: Chronic Assessment and plan: History of rheumatic heart disease, bicuspid heart valve underwent procedure roughly 5 years ago. Patient has been stable since. (6) Hx of atrial fibrillation without current medication Current Visit: Yes Status: Acute Assessment and plan: Patient is a history of atrial fibrillation roughly 5 years ago, underwent ablation denies any known arrhythmias in the last 5 years May consider outpatient event monitor (7) Hx of stroke without residual deficits Current Visit: Yes Status: Acute Assessment and plan: Patient is a history of 3 strokes, last known in 2006. Review of CT upon admission demonstrates there had been bilateral basal ganglia and bilateral cerebellar lacunar infarcts that I do not see on previous imaging from 2006. He may have had strokes without symptoms in the last 10 years. - Patient was only taking pravastatin and aspirin. - Subjective Interval history: 76 year old male admitted for difficulty speaking and found to have an acute CVA. He has been placed on a heparin drip and is being bridged to coumadin, his INR remains subtherpeutic. Today he reports he is feeling well. He is still having difficulty with his speech. He has no other complaints at this time. - Constitutional Vitals: Temp Pulse Resp BP Pulse Ox 97.3 F L 73 16 138/82 97 05/20/17 12:00 05/20/17 12:00 05/20/17 12:00 05/20/17 12:00 05/20/17 12:00 General appearance: Present: cooperative, pleasant, no acute distress - Head Head exam: Present: atraumatic, normocephalic - ENT ENT exam: Present: mucous membranes moist - Respiratory Respiratory exam: Present: CTAB. Absent: rales, rhonchi, stridor, wheezes - Cardiovascular Cardiovascular exam: Present: RRR, +S1, +S2. Absent: clicks, diastolic murmur, gallop, rubs, systolic murmur - GI/Abdominal GI/Abdominal exam: Present: normal bowel sounds, soft. Absent: distended, guarding, rebound, tenderness - Extremities Exam Extremities exam: Present: normal capillary refill, pedal edema (trace bilaterally ) - Neurological Exam Neurological exam: Present: speech deficit (dysarthria) Internal Medicine: Result - Labs CBC & Chem 7: 05/19/17 04:19 05/19/17 04:19 - ABG Interpretation ABG results: PT/INR, D-dimer PT 13.0 Seconds (9.4-12.1) H 05/20/17 03:33 Consult Discharge Plan - Plan Referrals: Maurilio Bar MD [Primary Care Provider] - 05/25/17 11:30 am Prescriptions: Apixaban [Eliquis] 5 mg PO BID #60 tablet <Jad Rebolledo - Last Filed: 05/20/17 15:17> Date of Encounter: 05/20/17 - Assessment and plan (1) Cerebrovascular accident Current Visit: Yes Status: Acute Qualifiers: CVA mechanism: thrombosis Precerebral and cerebral artery: middle cerebral artery Laterality of affected vessel: left Qualified Code(s): I63.312 - Cerebral infarction due to thrombosis of left middle cerebral artery (2) CVA (cerebral vascular accident) Current Visit: Yes Status: Acute Assessment and plan: See above. Qualifiers: CVA mechanism: thrombosis Precerebral and cerebral artery: cerebellar artery Laterality of affected vessel: right Qualified Code(s): I63.341 - Cerebral infarction due to thrombosis of right cerebellar artery (3) Expressive aphasia Current Visit: Yes Status: Acute (4) Paroxysmal A-fib Current Visit: Yes Status: Suspected (5) Mitral stenosis Current Visit: Yes Status: Chronic Qualifiers: Cardiac valve disease etiology: rheumatic Qualified Code(s): I05.0 - Rheumatic mitral stenosis (6) Hx of rheumatic heart disease Current Visit: Yes Status: Chronic (7) Hx of stroke without residual deficits Current Visit: Yes Status: Acute (8) Hx of atrial fibrillation without current medication Current Visit: Yes Status: Acute - Constitutional Vitals: Temp Pulse Resp BP Pulse Ox 97.3 F L 73 16 138/82 97 05/20/17 12:00 05/20/17 12:00 05/20/17 12:00 05/20/17 12:00 05/20/17 12:00 Internal Medicine: Result - Labs CBC & Chem 7: 05/19/17 04:19 05/19/17 04:19 - ABG Interpretation ABG results: PT/INR, D-dimer PT 13.0 Seconds (9.4-12.1) H 05/20/17 03:33 - Attending Attestation I examined this patient and my medical decision-making was reviewed with the Resident Physician on 05/20/17. I agree with the documented findings, disposition and treatment plan as described except to the extent set forth below. Mr Womack is currently admitted for acute bilateral CVAs. He remains moderate to high risk due to potential for worsening neurologic status. Mr Womack is doing OK. He just finished breakfast and is up in chair. Speech is about the same as yesterday. No fever or chills. No new neuro symptoms. Exam Alert. Comfortable Mucus membranes dry Heart reg No wheeze Abd soft I/P 1. Bilateral CVAs 2. Probable parox a fib Currently on heparin and coumadin and awaiting INR to increase. Further diagnoses and plan as above.
[2017-05-20] MEDS ORDERED: *HR* Warfarin 5 MG TABLET PO ONE (18:00)
[2017-05-20] MEDS: Heparin 25,000 UNIT/500 ML D5W 25,000 UNIT/500 ML MLS IVC SCH (23:57)
[2017-05-21 03:44] LABS: Basophils # 0.1 K/mcL (0.0-0.2); Basophils % 0.5 %; Eosinophils # 0.6 K/mcL (0.0-0.6); Eosinophils % 5.6 %; Hematocrit 44.5 % (37.5-50.1); Hemoglobin 15.4 g/dL (12.9-16.9); Immature Granulocytes % 0.3 % (0-4); Lymphocytes # 3.6 K/mcL (0.6-4.6); Lymphocytes % 36.1 %; Mean Corpuscular HGB Conc 34.6 g/dL (31.6-35.5); Mean Corpuscular Hemoglobin 30.4 pg (28.0-33.3); Mean Corpuscular Volume 87.9 fL (83.0-100.0); Mean Platelet Volume 11.4 fL (9.4-12.4); Monocytes % 9.5 %; Neutrophils # 4.8 K/mcL (1.6-8.9); Platelet Count 137 K/mcL (140-400); Red Blood Count 5.06 M/mcL (4.19-5.50); Red Cell Distribution Width 13.2 % (11.5-14.5)
[2017-05-21 03:49] LABS: INR 1.7; Prothrombin Time 18.6 Seconds (9.4-12.1)
[2017-05-21] MEDS: Aspirin Enteric Coated 81 MG Tablet PO SCH (10:16)
[2017-05-21] MEDS ORDERED: *HR* Enoxaparin 100 MG/ML SYRINGE SQ SCH (11:00)
--- NOTE | 2017-05-21 14:28 | Discharge Summary ---
<Shaw Pabon - Last Filed: 05/21/17 15:43> Date of Encounter: 05/21/17 Time of Encounter: 10:00 - Discharge Diagnosis (1) Cerebrovascular accident Priority: Primary Status: Acute Qualifiers: CVA mechanism: thrombosis Precerebral and cerebral artery: middle cerebral artery Laterality of affected vessel: left Qualified Code(s): I63.312 - Cerebral infarction due to thrombosis of left middle cerebral artery (2) Hx of stroke without residual deficits Priority: Primary Status: Acute (3) Hx of rheumatic heart disease Priority: Secondary Status: Chronic (4) Hx of atrial fibrillation without current medication Priority: Primary Status: Acute (5) DVT prophylaxis Priority: Secondary Status: Acute - Discharge Medications Prescriptions: Atorvastatin [Lipitor] 40 mg PO HS #30 tablet Enoxaparin [Lovenox] 90 mg SQ Q12H #6 syr Warfarin [Coumadin] 2.5 mg PO 1800 #30 tablet Home Medications: Cholecalciferol (Vitamin D3) [Vitamin D3] 2,000 unit PO DAILY 05/17/17 [History] Aspirin Enteric Coated [Aspirin EC] 81 mg PO DAILY tablet. 05/21/17 [Rx] Atorvastatin [Lipitor] 40 mg PO HS #30 tablet 05/21/17 [Rx] Enoxaparin [Lovenox] 90 mg SQ Q12H syringe 05/21/17 [Rx] Enoxaparin [Lovenox] 90 mg SQ Q12H #6 syr 05/21/17 [Rx] Metoprolol [Lopressor] 25 mg PO BID #0 05/21/17 [Rx] Warfarin [Coumadin] 2.5 mg PO 1800 #30 tablet 05/21/17 [Rx] Allergies/Adverse Reactions: 3 Allergy/AdvReac Type Severity Reaction Status Date / Time No Known Allergies Allergy Verified 05/17/17 11:10 Date of admission: 05/17/17 19:24 Primary care physician: Maurilio Bar MD Consults: 05/18/17 08:29 Consult to Cardiology [CONS] Routine Comment: Consulting Provider: Cardiology [facility] Reason for Consult: stroke, suspect a-fib Call Completed: Yes 05/19/17 13:23 OT [Consult to Occupational Therapy] [CONS] Routine Comment: Evaluate, develop and implement POC Reason for Consult: Pt with recent CVA PT [Consult to Physical Therapy] [CONS] Routine Comment: Evaluate, develop and implement POC Reason for Consult: Pt with recent CVA Discharging clinician: Shaw Pabon Anticipated date of discharge: 05/21/17 - Patient Status Disposition: Home, Self-Care Condition: Fair - Ambulatory Orders Ambulatory Orders: Consult to Speech Therapy [CONS] Time Frame: 1 Week, Facility: [facility], Location: Speech Therapy [place] - Discharge Instructions Instructions: Warfarin (By mouth), Enoxaparin (Injection), Atorvastatin (By mouth), Atrial Fibrillation (DC), Atrial Fibrillation (GEN), Mitral Stenosis (DC ), Mitral Stenosis (GEN), Aphasia (DC), Aphasia (GEN), Expressive Aphasia Exercises (GEN), Ischemic Stroke (DC), Ischemic Stroke (GEN) Follow Up With: Maurilio Bar MD [Primary Care Provider] - 05/25/17 11:30 am Bhanu Mcnally MD [Partnered Physician] - 05/23/17 10:00 am Ginny Valle [Partnered Physician] - 07/03/17 9:30 am Additional Instructions: Coumadin clinic on 05-23-17 at 3:30pm for lab draw. Please take all medications with you to appointment. Interval History: Mr. Womack is a 76 year old male past medical history of rheumatic heart disease post valvular repair, history of atrial fibrillation 5 years ago currently in sinus rhythm post-ablation multiple years ago, strokes 3 (last one 7 years ago), TIA presented to the emergency department after having acute onset difficulty with speech. He had discontinued Coumadin therapy roughly one year prior to this admission. Upon evaluation in the emergency department he was determined to have a stroke resulting in right-sided facial droop and dysarthria. A stat head CT was performed that did not demonstrate any acute abnormalities but did show old bilateral basal ganglia and bilateral cerebellar lacunar infarcts. Left frontal lobe encephalomalacia compatible with prior infarct. Comparing these findings to a MRI of the brain in 2006 demonstrate that the bilateral basal ganglia and bilateral cell of bowel or lacunar infarcts were newer within this ten-year span. [facility] video stroke evaluation was performed and TPA was offered to the patient, after discussion regarding risks versus benefits the patient declined TPA. He underwent CTA of the head and neck demonstrating mild less than 50% stenosis of the right internal carotid artery and moderate 50-69% stenosis the left internal carotid artery. Mild narrowing of bilateral posterior cerebellar arteries. He was admitted to the general medical floor and evaluated with his physical exam correlating with strokelike symptoms. Neurology was consult and a carotid duplex ultrasound was ordered, brain MRI was ordered and the patient was placed on cardiac monitoring , nothing by mouth until evaluation by speech therapy the following morning. After speech therapy evaluation was determined that he needed ground foods and thin liquids. Brain MRI demonstrated multiple small right cerebellar acute infarcts, left posterior frontal cortical acute infarct with small amount of adjacent edema. Multifocal small vessel ischemic changes bilateral with several small prior infarcts. With the patient's history of rheumatic heart disease and echocardiogram demonstrating valvular disease cardiology was consult and evaluated. It is suspected the patient has proximal atrial fibrillation that may have resulted in thrombotic stroke. His risk factors are weighed he was started on subcutaneous Lovenox bridging Coumadin. He remained in patient's during the initial part of bridging and stable with evaluation by physical and occupational therapy. He was evaluated and deemed stable for discharge on 05/21/2017 with discharge scripts for Lovenox and Coumadin. He will follow-up with Coumadin clinic, cardiology in 6-8 weeks, neurology in 2-3 weeks and will follow-up with speech therapy outpatient. Hospital course: Mr. Womack is a 76 year old male - Time Spent with Patient Total time spent providing and/or coordinating discharge services: - Constitutional Vitals: Temp Pulse Resp BP Pulse Ox 98.1 F 88 14 154/95 94 05/21/17 15:05 05/21/17 15:05 05/21/17 15:05 05/21/17 15:05 05/21/17 15:05 - Head Head exam: Present: atraumatic, normocephalic - Eye Eye exam: Present: PERRL, conjuntiva pink, sclera anicteric Pupils: Present: PERRL - Neck Neck exam general surgery: Present: supple, trachea midline. Absent: lymphadenopathy - Respiratory Respiratory exam: Present: CTAB. Absent: accessory muscle use, rales, rhonchi, wheezes - Cardiovascular Cardiovascular exam: Present: RRR, +S1, +S2. Absent: diastolic murmur, gallop, rubs, systolic murmur - GI/Abdominal GI/Abdominal exam: Present: normal bowel sounds, soft, no peritoneal signs. Absent: distended, tenderness - Extremities Exam Extremities exam: Present: warm, radial pulses palpable and symmetrical. Absent : calf tenderness, cyanotic, pedal edema - Neurological Exam Neurological exam: Present: oriented X3, speech deficit (dysarthria). Absent: pronater drift, facial droop - Skin Skin exam: Present: dry, intact <Jad Rebolledo - Last Filed: 05/21/17 16:54> Date of Encounter: 05/21/17 - Discharge Diagnosis (1) Cerebrovascular accident Status: Acute Qualifiers: CVA mechanism: thrombosis Precerebral and cerebral artery: middle cerebral artery Laterality of affected vessel: left Qualified Code(s): I63.312 - Cerebral infarction due to thrombosis of left middle cerebral artery (2) CVA (cerebral vascular accident) Priority: Primary Status: Acute Qualifiers: CVA mechanism: thrombosis Precerebral and cerebral artery: cerebellar artery Laterality of affected vessel: right Qualified Code(s): I63.341 - Cerebral infarction due to thrombosis of right cerebellar artery (3) Expressive aphasia Priority: Secondary Status: Acute (4) Paroxysmal A-fib Priority: Secondary Status: Suspected (5) Mitral stenosis Priority: Secondary Status: Chronic Qualifiers: Cardiac valve disease etiology: rheumatic Qualified Code(s): I05.0 - Rheumatic mitral stenosis (6) Hx of rheumatic heart disease Status: Chronic (7) Hx of stroke without residual deficits Priority: Secondary Status: Acute (8) Hx of atrial fibrillation without current medication Priority: Secondary Status: Acute Date of admission: 05/17/17 19:24 Primary care physician: Maurilio Bar MD Consults: 05/18/17 08:29 Consult to Cardiology [CONS] Routine Comment: Consulting Provider: Cardiology [place] Reason for Consult: stroke, suspect a-fib Call Completed: Yes 05/19/17 13:23 OT [Consult to Occupational Therapy] [CONS] Routine Comment: Evaluate, develop and implement POC Reason for Consult: Pt with recent CVA PT [Consult to Physical Therapy] [CONS] Routine Comment: Evaluate, develop and implement POC Reason for Consult: Pt with recent CVA - Patient Status Functional capacity at discharge: independent ambulation Overall status at discharge: patient is progressing back to baseline - Diet and Activity Activity: increase activity as tolerated Diet: low fat, low cholesterol, low salt diet (Mechanically altered diet) Hospital course: Mr. Womack is a 76 year old male - Time Spent with Patient Total time spent providing and/or coordinating discharge services: 38min - Constitutional Vitals: Temp Pulse Resp BP Pulse Ox 97.8 F 88 14 143/77 96 05/21/17 11:22 05/21/17 11:22 05/21/17 11:22 05/21/17 11:22 05/21/17 11:22 General appearance: Present: cooperative, pleasant, no acute distress - Attending Attestation I examined this patient and my medical decision-making was reviewed with the Resident Physician on 05/21/17. I agree with the documented findings, disposition and treatment plan as described except to the extent set forth below. Mr Womack has been admitted for bilateral CVAs presumed due to parox a fib. He has not had any episodes here in the hospital. He has had aphasia and has been seen by speech therapy. Today his INR is 1.7 and he has been given Lovenox to go home. He is afebrile with stable vitals. He will be discharged home. He will need event monitor and follow up with card and PCP. Exam Alert. Comfortable Mucus membranes dry Heart reg No wheeze Plan D/C home today Follow up with card in 4 weeks Event monitor Coumadin clinic on Lovenox/Coumadin for now.
[2017-05-21 15:08] VITALS: BP 154/95
[2017-05-21] MEDS ORDERED: *HR* Warfarin 3 MG TABLET PO ONE (18:00)
== END 2017-05-21 17:45 | disposition home or self-care (01) | DRG 66 ==
LOC: 2NENU 10:45 → EMEROO 10:45 → 2NENU 16:35 → SUATTDRO 19:24
PROVIDERS: ADMIT Internal Medicine; ATTEND Internal Medicine

== ENCOUNTER 2019-07-31 06:20 | Inpatient (IN) ==
[2019-07-31] MEDS ORDERED: levoFLOXacin 500 MG/100 ML 500 MG/100 ML BAG IVPB ONE (06:35)
[2019-07-31] MEDS ORDERED: Ringers Solution, Lactated 1,000 ML IVC SCH (06:45)
[2019-07-31] MEDS ORDERED: *HR* Rocuronium Bromide 50 MG/5 ML VIAL ONE ×2 (07:03→09:14)
[2019-07-31] MEDS ORDERED: Dexamethasone 4 MG/ML VIAL ONE (07:03)
[2019-07-31] MEDS ORDERED: Ondansetron 4 MG/2 ML VIAL ONE (07:03)
[2019-07-31] MEDS ORDERED: Lidocaine -MPF 2% 2 ML VIAL ONE (07:03)
[2019-07-31] MEDS ORDERED: Lidocaine -MPF 4% 5 ML AMPUL ONE (07:03)
[2019-07-31] MEDS ORDERED: *HR* Propofol 200 MG/20 ML VIAL IVP ONE (07:06)
[2019-07-31] MEDS ORDERED: *HR* FentaNYL (PF) 100 MCG/2 ML VIAL ONE (07:07)
[2019-07-31] MEDS ORDERED: *HR* OxyCODONE Immed Rel 5 MG TABLET PO PRN ×2 (07:33→11:09)
[2019-07-31] MEDS ORDERED: *HR* Promethazine 25 MG/ML VIAL IVP PRN (07:33)
[2019-07-31] MEDS ORDERED: Ondansetron 4 MG/2 ML VIAL IVP ONE (07:33)
[2019-07-31] MEDS ORDERED: *HR* HYDROmorphone (PF) 1 MG/ML SYRINGE IVP PRN (07:34)
[2019-07-31] MEDS ORDERED: Heparin 1,000 UNITS/500 mL 500 ML ONE (07:36)
[2019-07-31] MEDS ORDERED: Bupivacaine/EPI 1:200k 0.25%PF 10 ML VIAL INFILT ONE (07:47)
[2019-07-31 08:00] LABS: INR 1.3; Prothrombin Time 15.1 Seconds (9.4-12.1)
[2019-07-31] MEDS ORDERED: *HR* Phenylephrine 10 MG/ML VIAL ONE (08:35)
[2019-07-31] MEDS ORDERED: Ondansetron 4 MG/2 ML VIAL IVP PRN (11:09)
[2019-07-31] MEDS ORDERED: Hyoscyamine SL 0.125 MG TAB.SUBL SL PRN (11:09)
[2019-07-31] MEDS ORDERED: Naloxone 0.4 MG/ML INJ IVP PRN (11:09)
[2019-07-31] MEDS ORDERED: *HR* Belladonna Alkaloids/Opium 30 MG RECTAL SUPPOSITORY RC PRN (11:09)
[2019-07-31] MEDS: 0.9 % Sodium Chloride 1,000 ML IVC SCH ×2 (12:00→21:52)
[2019-07-31] MEDS: Acetaminophen IV 1,000 MG/100 ML INFUS..BTL IVPB SCH ×2 (13:00→19:47)
[2019-07-31] MEDS ORDERED: 0.9 % Sodium Chloride 1,000 ML IVC ONE (16:09)
[2019-07-31 17:08] LABS: Hematocrit 43.6 % (37.5-50.1); Hemoglobin 13.6 g/dL (12.9-16.9)
[2019-07-31 20:59] LABS: Alanine Aminotransferase 12 Units/L (7-52); Albumin 3.2 g/dL (3.5-5.7); Albumin/Globulin Ratio 1.1 (1.1-2.2); Alkaline Phosphatase 60 Units/L (34-104); Aspartate Amino Transferase 13 Units/L (13-39); BUN/Creatinine Ratio 12 (6-26); Bilirubin,Total 1.3 mg/dL (0.3-1.0); Blood Urea Nitrogen 18 mg/dL (8-23); Calcium 8.3 mg/dL (8.6-10.3); Carbon Dioxide 25 mEq/L (23-29); Chloride 107 mEq/L (98-107); Globulin 2.8 g/dL (2.4-3.5); Glucose 159 mg/dL (70-105); Magnesium 1.7 mg/dL (1.6-2.6); Osmolality,Calculated 289 (280-300); Phosphorous 3.8 mg/dL (2.7-4.5); Potassium 4.9 mEq/L (3.5-5.1); Sodium 137 mEq/L (136-145); eGFR For African Americans 54 (> 60); eGFR For Non-African Americans 45 (> 60)
[2019-07-31 21:00] LABS: Troponin I < 0.03 ng/mL (< 0.04)
[2019-07-31] MEDS ORDERED: *HR* Warfarin 2.5 MG TABLET PO ONE (21:00)
[2019-07-31 21:12] LABS: VBG HCO3 25 mEq/L (21-27); VBG PCO2 53 mmHg (41-51); VBG PH 7.28 pH Units (7.32-7.42); VBG PO2 77 mmHg (25-50)
[2019-07-31 21:14] LABS: Thyroid Stimulating Hormone 2.075 mcIU/mL (0.340-5.600)
[2019-08-01] MEDS: Acetaminophen IV 1,000 MG/100 ML INFUS..BTL IVPB SCH ×4 (00:51→18:15)
[2019-08-01 04:37] LABS: Basophils % 0.1 %; Hematocrit 40.3 % (37.5-50.1); Hemoglobin 13.1 g/dL (12.9-16.9); Immature Granulocytes % 0.4 % (0-4); Lymphocytes # 1.5 K/mcL (0.6-4.6); Lymphocytes % 10.8 %; Mean Corpuscular HGB Conc 32.5 g/dL (31.6-35.5); Mean Corpuscular Volume 92.2 fL (83.0-100.0); Mean Platelet Volume 11.5 fL (9.4-12.4); Monocytes # 1.2 K/mcL (0.0-1.3); Monocytes % 8.9 %; Neutrophils # 11.1 K/mcL (1.6-8.9); Platelet Count 158 K/mcL (140-400); Red Blood Count 4.37 M/mcL (4.19-5.50); Red Cell Distribution Width 14.4 % (11.5-14.5); Segmented Neutrophils % 79.8 %; White Blood Count 13.9 K/mcL (4.3-11.1)
[2019-08-01 04:47] LABS: INR 1.3; Prothrombin Time 14.3 Seconds (9.4-12.1)
[2019-08-01 05:00] LABS: Calcium 8.7 mg/dL (8.6-10.3); Potassium 4.8 mEq/L (3.5-5.1)
[2019-08-01] MEDS: Isosorbide MONOnitrate (24 HR) 60 MG TAB.ER.24H PO SCH (07:18)
[2019-08-01] MEDS: 0.9 % Sodium Chloride 1,000 ML IVC SCH ×2 (07:19→17:18)
[2019-08-01] MEDS ORDERED: *HR* Heparin 5,000 UNIT/ML VIAL IVP PRN ×2 (10:47)
[2019-08-01] MEDS: Heparin 25,000 UNIT/250 ML D5W 25,000 UNIT/250 ML IV.SOLN IVC SCH (11:15)
[2019-08-01] MEDS ORDERED: Dextrose Gel 15 GM/37.5 ML TUBE PO PRN ×2 (11:35)
[2019-08-01] MEDS ORDERED: *HR* Dextrose 50 % in Water (Syg) 50 ML SYRINGE IVP PRN (11:35)
[2019-08-01] MEDS ORDERED: D5% in Water 1,000 ML IVC PRN (11:35)
[2019-08-01 11:39] LABS: Heparin anti-factor XA UFH < 0.04 IU/mL (0.30-0.70); INR 1.3
[2019-08-01 11:41] LABS: Hemoglobin 13.1 g/dL (12.9-16.9); Mean Corpuscular HGB Conc 32.8 g/dL (31.6-35.5); Mean Corpuscular Hemoglobin 30.2 pg (28.0-33.3); Mean Corpuscular Volume 92.2 fL (83.0-100.0); Mean Platelet Volume 11.6 fL (9.4-12.4); Platelet Count 156 K/mcL (140-400); Red Blood Count 4.34 M/mcL (4.19-5.50); Red Cell Distribution Width 14.4 % (11.5-14.5); White Blood Count 15.3 K/mcL (4.3-11.1)
[2019-08-01] MEDS: Insulin LISPRO 300 UNITS/3 ML VIAL SQ SCH (17:16)
[2019-08-01] MEDS ORDERED: Warfarin perPT PO PRN (18:00)
[2019-08-01] MEDS ORDERED: *HR* Warfarin 2.5 MG TABLET PO ONE (18:00)
[2019-08-02] MEDS: Acetaminophen IV 1,000 MG/100 ML INFUS..BTL IVPB SCH ×3 (00:34→12:46)
[2019-08-02 01:22] LABS: Basophils % 0.1 %; Eosinophils # 0.1 K/mcL (0.0-0.6); Eosinophils % 0.6 %; Hematocrit 39.6 % (37.5-50.1); Hemoglobin 12.7 g/dL (12.9-16.9); Immature Granulocytes % 0.4 % (0-4); Lymphocytes # 2.6 K/mcL (0.6-4.6); Mean Corpuscular HGB Conc 32.1 g/dL (31.6-35.5); Mean Corpuscular Hemoglobin 29.5 pg (28.0-33.3); Mean Corpuscular Volume 92.1 fL (83.0-100.0); Mean Platelet Volume 11.2 fL (9.4-12.4); Monocytes # 0.9 K/mcL (0.0-1.3); Monocytes % 6.3 %; Neutrophils # 10.7 K/mcL (1.6-8.9); Platelet Count 141 K/mcL (140-400); Red Cell Distribution Width 14.8 % (11.5-14.5); Segmented Neutrophils % 74.6 %; White Blood Count 14.3 K/mcL (4.3-11.1)
[2019-08-02 01:28] LABS: INR 1.7; Prothrombin Time 19.8 Seconds (9.4-12.1)
[2019-08-02 01:39] LABS: Calcium 8.5 mg/dL (8.6-10.3); Potassium 4.5 mEq/L (3.5-5.1)
[2019-08-02] MEDS: 0.9 % Sodium Chloride 1,000 ML IVC SCH ×2 (03:30→18:13)
[2019-08-02] MEDS: Heparin 25,000 UNIT/250 ML D5W 25,000 UNIT/250 ML IV.SOLN IVC SCH (06:25)
[2019-08-02] MEDS: Insulin LISPRO 300 UNITS/3 ML VIAL SQ SCH ×3 (10:22→18:14)
[2019-08-02] MEDS: Isosorbide MONOnitrate (24 HR) 60 MG TAB.ER.24H PO SCH (10:25)
[2019-08-02] MEDS ORDERED: *HR* Warfarin 2.5 MG TABLET PO ONE (18:00)
[2019-08-03 01:39] LABS: Basophils % 0.3 %; Eosinophils # 0.3 K/mcL (0.0-0.6); Eosinophils % 3.2 %; Hematocrit 40.5 % (37.5-50.1); Immature Granulocytes % 0.3 % (0-4); Lymphocytes # 2.2 K/mcL (0.6-4.6); Lymphocytes % 20.5 %; Mean Corpuscular HGB Conc 32.1 g/dL (31.6-35.5); Mean Corpuscular Hemoglobin 29.7 pg (28.0-33.3); Mean Corpuscular Volume 92.7 fL (83.0-100.0); Mean Platelet Volume 11.7 fL (9.4-12.4); Monocytes # 0.8 K/mcL (0.0-1.3); Monocytes % 7.3 %; Neutrophils # 7.4 K/mcL (1.6-8.9); Platelet Count 124 K/mcL (140-400); Red Blood Count 4.37 M/mcL (4.19-5.50); Red Cell Distribution Width 14.7 % (11.5-14.5); Segmented Neutrophils % 68.4 %; White Blood Count 10.8 K/mcL (4.3-11.1)
[2019-08-03 01:46] LABS: INR 2.2; Prothrombin Time 25.4 Seconds (9.4-12.1)
[2019-08-03 01:59] LABS: Calcium 8.5 mg/dL (8.6-10.3); Potassium 3.9 mEq/L (3.5-5.1)
[2019-08-03] MEDS: 0.9 % Sodium Chloride 1,000 ML IVC SCH ×2 (04:52→11:48)
[2019-08-03] MEDS: Heparin 25,000 UNIT/250 ML D5W 25,000 UNIT/250 ML IV.SOLN IVC SCH (04:54)
[2019-08-03] MEDS: Insulin LISPRO 300 UNITS/3 ML VIAL SQ SCH ×3 (08:12→18:06)
[2019-08-03] MEDS: Isosorbide MONOnitrate (24 HR) 60 MG TAB.ER.24H PO SCH (08:29)
[2019-08-03] MEDS ORDERED: Bisacodyl 10 MG RECTAL SUPPOSITORY RC PRN (08:38)
[2019-08-03] MEDS ORDERED: *HR* Warfarin 2.5 MG TABLET PO ONE (18:00)
[2019-08-04 05:59] LABS: Basophils % 0.3 %; Eosinophils # 0.6 K/mcL (0.0-0.6); Eosinophils % 5.6 %; Hemoglobin 12.6 g/dL (12.9-16.9); Immature Granulocytes % 0.3 % (0-4); Lymphocytes # 2.3 K/mcL (0.6-4.6); Lymphocytes % 22.7 %; Mean Corpuscular HGB Conc 32.3 g/dL (31.6-35.5); Mean Corpuscular Volume 89.9 fL (83.0-100.0); Mean Platelet Volume 12.1 fL (9.4-12.4); Monocytes # 0.8 K/mcL (0.0-1.3); Neutrophils # 6.3 K/mcL (1.6-8.9); Platelet Count 157 K/mcL (140-400); Red Blood Count 4.34 M/mcL (4.19-5.50); Red Cell Distribution Width 14.4 % (11.5-14.5); Segmented Neutrophils % 63.1 %
[2019-08-04 06:04] LABS: INR 2.4; Prothrombin Time 27.4 Seconds (9.4-12.1)
[2019-08-04 06:32] LABS: Calcium 8.4 mg/dL (8.6-10.3); Potassium 3.7 mEq/L (3.5-5.1)
[2019-08-04 06:49] VITALS: BP 138/80
[2019-08-04] MEDS: Insulin LISPRO 300 UNITS/3 ML VIAL SQ SCH (08:33)
[2019-08-04] MEDS: Isosorbide MONOnitrate (24 HR) 60 MG TAB.ER.24H PO SCH (08:34)
[2019-08-04] MEDS ORDERED: *HR* Warfarin 2.5 MG TABLET PO ONE (18:00)
== END 2019-08-04 12:52 | disposition home or self-care (01) | DRG 656 ==
LOC: SAMDAY 06:20 → 3ANU 14:26
PROVIDERS: ADMIT Urology; ATTEND Urology

== ENCOUNTER 2019-09-17 16:25 | Inpatient (IN) ==
[2019-09-17] MEDS ORDERED: Ondansetron 4 MG/2 ML VIAL IVP ONE (16:48)
[2019-09-17] MEDS ORDERED: 0.9 % Sodium Chloride 1,000 ML IVC ONE (16:48)
[2019-09-17] MEDS ORDERED: Isovue-370 500 ML BOTTLE IVP ONE (16:48)
[2019-09-17 17:23] LABS: Bilirubin,Urine Negative (Negative); Clarity,Urine Clear (Clear); Color,Urine Yellow (Yellow); Glucose,Urine (UA) Normal (Normal); Ketones,Urine Negative (Negative)
[2019-09-17 17:24] LABS: Blood,Urine Negative (Negative); Leukocyte Esterase,Urine Negative (Negative); Nitrite,Urine Negative (Negative); PH,Urine 6.5 pH Units (5.0-8.0); Protein,Urine 100 mg/dL (Neg-Trace); Specific Gravity,Urine 1.025 (1.010-1.025); Urobilinogen,Urine Normal (Normal)
[2019-09-17 17:34] LABS: Basophils % 0.3 %; Hematocrit 40.1 % (37.5-50.1); Hemoglobin 13.5 g/dL (12.9-16.9); Immature Granulocytes % 0.3 % (0-4); Lymphocytes # 0.6 K/mcL (0.6-4.6); Lymphocytes % 9.4 %; Mean Corpuscular HGB Conc 33.7 g/dL (31.6-35.5); Mean Corpuscular Hemoglobin 29.6 pg (28.0-33.3); Mean Corpuscular Volume 87.9 fL (83.0-100.0); Mean Platelet Volume 12.1 fL (9.4-12.4); Monocytes # 0.4 K/mcL (0.0-1.3); Monocytes % 6.1 %; Neutrophils # 5.6 K/mcL (1.6-8.9); Platelet Count 134 K/mcL (140-400); Red Blood Count 4.56 M/mcL (4.19-5.50); Red Cell Distribution Width 15.5 % (11.5-14.5); Segmented Neutrophils % 83.9 %; White Blood Count 6.7 K/mcL (4.3-11.1)
[2019-09-17 17:45] LABS: Alanine Aminotransferase 22 Units/L (7-52); Albumin 3.5 g/dL (3.5-5.7); Albumin/Globulin Ratio 1.1 (1.1-2.2); Alkaline Phosphatase 75 Units/L (34-104); Amylase 60 Units/L (29-103); Aspartate Amino Transferase 35 Units/L (13-39); BUN/Creatinine Ratio 10 (6-26); Bilirubin,Direct 0.4 mg/dL (0.0-0.2); Bilirubin,Indirect 1.1 mg/dL (0.0-1.0); Bilirubin,Total 1.5 mg/dL (0.3-1.0); Blood Urea Nitrogen 19 mg/dL (8-23); Calcium 8.8 mg/dL (8.6-10.3); Carbon Dioxide 26 mEq/L (23-29); Chloride 95 mEq/L (98-107); Globulin 3.1 g/dL (2.4-3.5); Glucose 142 mg/dL (70-105); Lipase 29 Units/L (11-82); Osmolality,Calculated 275 (280-300); Potassium 4.1 mEq/L (3.5-5.1); Sodium 130 mEq/L (136-145); Total Protein 6.6 g/dL (6.4-8.9); Troponin I < 0.03 ng/mL (< 0.04); eGFR For African Americans 41 (> 60); eGFR For Non-African Americans 33 (> 60)
[2019-09-17 17:47] LABS: Calcium Oxalate Crystals,Urine Present
[2019-09-17 17:48] LABS: Bacteria,Urine Few per hpf (None-Few); RBC,Urine 0-3 per hpf (0-3); Squamous Epithelial Cell,Urine Few per lpf (None-Few); WBC,Urine 0-3 per hpf (0-3)
[2019-09-17 18:04] LABS: INR 1.4; Prothrombin Time 16.4 Seconds (9.4-12.1)
[2019-09-17 18:07] LABS: Activated Partial Thrombo Time 34.5 Seconds (26.0-36.0)
[2019-09-17] MEDS ORDERED: 0.9 % Sodium Chloride 1,000 ML IV ONE (19:01)
[2019-09-17] MEDS ORDERED: Azithromycin 500 MG in 0.9 % Sodium Chloride 250 ML IVPB ONE (19:21)
[2019-09-17] MEDS ORDERED: cefTRIAXone 1,000 MG in Water for inj. (sterile) 10 ML IVP ONE (19:21)
[2019-09-17] MEDS ORDERED: Promethazine 12.5 MG in 0.9 % Sodium Chloride 50 ML IVPB ONE (19:58)
[2019-09-17] MEDS ORDERED: Naloxone 0.4 MG/ML INJ IVP PRN (23:30)
[2019-09-17] MEDS ORDERED: *HR* HYDROcodone/Acet 5/325 mg TABLET PO PRN (23:30)
[2019-09-17] MEDS ORDERED: *HR* Promethazine 25 MG/ML VIAL IVP PRN (23:30)
[2019-09-17] MEDS ORDERED: *HR* Heparin 5,000 UNIT/ML VIAL IVP PRN ×2 (23:33)
[2019-09-17] MEDS ORDERED: *HR* Heparin 5,000 UNIT/ML VIAL IVP ONE (23:33)
[2019-09-17] MEDS ORDERED: 0.9 % Sodium Chloride 1,000 ML IVC SCH (23:45)
[2019-09-18] MEDS: Heparin 25,000 UNIT/250 ML D5W 25,000 UNIT/250 ML IV.SOLN IVC SCH (00:38)
[2019-09-18 05:45] LABS: Calcium 8.3 mg/dL (8.6-10.3); Magnesium 1.9 mg/dL (1.6-2.6); Potassium 4.2 mEq/L (3.5-5.1)
[2019-09-18 07:09] LABS: Basophils # 0.1 K/mcL (0.0-0.2); Basophils % 0.7 %; Eosinophils % 0.1 %; Hemoglobin 15.2 g/dL (12.9-16.9); Immature Granulocytes % 0.8 % (0-4); Lymphocytes # 1.9 K/mcL (0.6-4.6); Mean Corpuscular Hemoglobin 28.3 pg (28.0-33.3); Mean Corpuscular Volume 91.2 fL (83.0-100.0); Mean Platelet Volume 11.7 fL (9.4-12.4); Monocytes # 0.4 K/mcL (0.0-1.3); Monocytes % 5.4 %; Neutrophils # 5.2 K/mcL (1.6-8.9); Platelet Count 119 K/mcL (140-400); Red Blood Count 5.37 M/mcL (4.19-5.50)
[2019-09-18 07:10] LABS: White Blood Count 7.6 K/mcL (4.3-11.1)
[2019-09-18 07:13] LABS: INR 1.6; Prothrombin Time 17.8 Seconds (9.4-12.1)
[2019-09-18 07:19] LABS: Heparin anti-factor XA UFH 1.13 IU/mL (0.30-0.70)
[2019-09-18] MEDS: Isosorbide MONOnitrate (24 HR) 60 MG TAB.ER.24H PO SCH (09:04)
[2019-09-18] MEDS ORDERED: Warfarin perPT PO PRN (18:00)
[2019-09-18] MEDS ORDERED: *HR* Warfarin 2.5 MG TABLET PO ONE (18:00)
[2019-09-18] MEDS ORDERED: 0.9 % Sodium Chloride 500 ML IV ONE (18:26)
[2019-09-18] MEDS ORDERED: 0.9 % Sodium Chloride 500 ML ONE (18:27)
[2019-09-18] MEDS: Budesonide/Formoterol 160/4.5 1 PUFF INH IH SCH (20:58)
[2019-09-19 02:34] LABS: Basophils % 0.3 %; Red Cell Distribution Width 15.9 % (11.5-14.5)
[2019-09-19 02:35] LABS: Heparin anti-factor XA UFH 0.45 IU/mL (0.30-0.70); INR 1.6
[2019-09-19 02:36] LABS: Hemoglobin 12.9 g/dL (12.9-16.9); Immature Granulocytes % 0.6 % (0-4); Immature Platelets 14.2 % (1.1-6.1); Lymphocytes # 0.9 K/mcL (0.6-4.6); Lymphocytes % 13.8 %; Mean Corpuscular HGB Conc 31.5 g/dL (31.6-35.5); Mean Corpuscular Hemoglobin 28.3 pg (28.0-33.3); Mean Corpuscular Volume 89.9 fL (83.0-100.0); Mean Platelet Volume 12.9 fL (9.4-12.4); Monocytes # 0.3 K/mcL (0.0-1.3); Monocytes % 4.5 %; Neutrophils # 5.4 K/mcL (1.6-8.9); Red Blood Count 4.56 M/mcL (4.19-5.50); Segmented Neutrophils % 80.8 %; White Blood Count 6.7 K/mcL (4.3-11.1)
[2019-09-19 02:38] LABS: Platelet Count 71 K/mcL (140-400)
[2019-09-19 02:49] LABS: Calcium 8.1 mg/dL (8.6-10.3); Potassium 4.5 mEq/L (3.5-5.1)
[2019-09-19 02:54] LABS: Platelet Estimate Decreased (Normal)
[2019-09-19] MEDS: Acetaminophen 325 MG TABLET PO PRN ×2 (03:22→18:16)
[2019-09-19] MEDS: Isosorbide MONOnitrate (24 HR) 60 MG TAB.ER.24H PO SCH (08:06)
[2019-09-19] MEDS: Budesonide/Formoterol 160/4.5 1 PUFF INH IH SCH ×2 (08:20→21:32)
[2019-09-19 08:36] LABS: Basophils % 0.3 %; Hematocrit 35.1 % (37.5-50.1); Hemoglobin 11.7 g/dL (12.9-16.9); Immature Granulocytes % 0.4 % (0-4); Lymphocytes # 0.9 K/mcL (0.6-4.6); Lymphocytes % 13.8 %; Mean Corpuscular HGB Conc 33.3 g/dL (31.6-35.5); Mean Corpuscular Hemoglobin 29.4 pg (28.0-33.3); Mean Corpuscular Volume 88.2 fL (83.0-100.0); Mean Platelet Volume 13.2 fL (9.4-12.4); Monocytes # 0.3 K/mcL (0.0-1.3); Monocytes % 4.6 %; Neutrophils # 5.5 K/mcL (1.6-8.9); Red Blood Count 3.98 M/mcL (4.19-5.50); Red Cell Distribution Width 15.6 % (11.5-14.5); Segmented Neutrophils % 80.9 %; White Blood Count 6.8 K/mcL (4.3-11.1)
[2019-09-19 08:37] LABS: Platelet Count 64 K/mcL (140-400)
[2019-09-19 09:27] LABS: Anisocytosis 1+ (Not Present); Platelet Estimate Decreased (Normal)
[2019-09-19] MEDS ORDERED: Furosemide 20 MG/2 ML VIAL IVP ONE (10:59)
[2019-09-19] MEDS: Azithromycin 500 MG in 0.9 % Sodium Chloride 250 ML IVPB SCH (11:29)
[2019-09-19] MEDS: cefTRIAXone 1,000 MG in Water for inj. (sterile) 10 ML IVP SCH (11:30)
[2019-09-19] MEDS: Heparin 25,000 UNIT/250 ML D5W 25,000 UNIT/250 ML IV.SOLN IVC SCH ×2 (11:46→19:50)
[2019-09-19] MEDS ORDERED: *HR* Warfarin 2.5 MG TABLET PO ONE (18:00)
[2019-09-19 18:26] LABS: Retculocyte # 0.07 M/mcL (0.05-0.10); Reticulocyte % 1.6 % (1.6-2.8)
[2019-09-19 20:52] LABS: % Iron Saturation 41 % (20-55); Iron 66 mcg/dL (65-175); Lactate Dehydrogenase 334 Units/L (140-271); Transferrin 115 mg/dL (203-362)
[2019-09-19 21:33] LABS: Folate 8.6 ng/mL (3.0-16.0)
[2019-09-20] MEDS: Acetaminophen 325 MG TABLET PO PRN (00:28)
[2019-09-20] MEDS ORDERED: *HR* Metoprolol 5 MG/5 ML VIAL IVP ONE (00:46)
[2019-09-20 04:50] LABS: Hemoglobin 11.5 g/dL (12.9-16.9); Immature Granulocytes % 0.5 % (0-4); Red Cell Distribution Width 15.9 % (11.5-14.5)
[2019-09-20 04:51] LABS: Basophils % 0.3 %; Hematocrit 33.8 % (37.5-50.1); Immature Platelets 24.9 % (1.1-6.1); Lymphocytes # 1.2 K/mcL (0.6-4.6); Mean Corpuscular Hemoglobin 29.6 pg (28.0-33.3); Mean Corpuscular Volume 86.9 fL (83.0-100.0); Mean Platelet Volume 13.3 fL (9.4-12.4); Monocytes # 0.2 K/mcL (0.0-1.3); Neutrophils # 6.1 K/mcL (1.6-8.9); Red Blood Count 3.89 M/mcL (4.19-5.50); Segmented Neutrophils % 80.2 %; White Blood Count 7.6 K/mcL (4.3-11.1)
[2019-09-20 04:54] LABS: Platelet Count 54 K/mcL (140-400)
[2019-09-20 05:03] LABS: Calcium 7.9 mg/dL (8.6-10.3); Potassium 3.6 mEq/L (3.5-5.1)
[2019-09-20 05:10] LABS: INR 1.7
[2019-09-20] MEDS: Heparin 25,000 UNIT/250 ML D5W 25,000 UNIT/250 ML IV.SOLN IVC SCH ×2 (05:27→11:52)
[2019-09-20 05:28] LABS: Platelet Estimate Decreased (Normal)
[2019-09-20] MEDS: Isosorbide MONOnitrate (24 HR) 60 MG TAB.ER.24H PO SCH ×2 (08:16→08:37)
[2019-09-20] MEDS: Budesonide/Formoterol 160/4.5 1 PUFF INH IH SCH ×2 (10:52→22:38)
[2019-09-20] MEDS: cefTRIAXone 1,000 MG in Water for inj. (sterile) 10 ML IVP SCH (11:49)
[2019-09-20] MEDS: Azithromycin 500 MG in 0.9 % Sodium Chloride 250 ML IVPB SCH (11:49)
[2019-09-20] MEDS: *HR* Digoxin 0.5 MG/2 ML AMPUL IVP SCH ×2 (11:51→17:18)
[2019-09-20 13:09] LABS: Hematocrit 36.3 % (37.5-50.1); Mean Corpuscular HGB Conc 33.1 g/dL (31.6-35.5); Mean Corpuscular Hemoglobin 28.6 pg (28.0-33.3); Mean Corpuscular Volume 86.6 fL (83.0-100.0); Red Blood Count 4.19 M/mcL (4.19-5.50); Red Cell Distribution Width 15.9 % (11.5-14.5); White Blood Count 8.6 K/mcL (4.3-11.1)
[2019-09-20 13:19] LABS: Platelet Count 49 K/mcL (140-400)
[2019-09-20] MEDS ORDERED: Argatroban 250 MG in 0.9 % Sodium Chloride 250 ML IVC SCH (14:00)
[2019-09-20 15:10] LABS: Albumin 2.7 g/dL (3.5-5.7); Bilirubin,Direct 0.8 mg/dL (0.0-0.2); Bilirubin,Indirect 0.8 mg/dL (0.0-1.0); Bilirubin,Total 1.6 mg/dL (0.3-1.0); Globulin 2.8 g/dL (2.4-3.5); Total Protein 5.5 g/dL (6.4-8.9)
[2019-09-20 21:23] LABS: Hemoglobin 11.4 g/dL (12.9-16.9); Mean Corpuscular HGB Conc 33.5 g/dL (31.6-35.5); Mean Corpuscular Hemoglobin 29.1 pg (28.0-33.3); Mean Corpuscular Volume 86.7 fL (83.0-100.0); Red Blood Count 3.92 M/mcL (4.19-5.50); Red Cell Distribution Width 15.8 % (11.5-14.5); White Blood Count 8.5 K/mcL (4.3-11.1)
[2019-09-20 21:25] LABS: Platelet Count 51 K/mcL (140-400)
[2019-09-21] MEDS: *HR* Digoxin 0.5 MG/2 ML AMPUL IVP SCH (00:21)
[2019-09-21 06:11] LABS: Mean Corpuscular Hemoglobin 28.5 pg (28.0-33.3); Red Cell Distribution Width 15.9 % (11.5-14.5)
[2019-09-21 06:13] LABS: Basophils % 0.4 %; Hematocrit 36.2 % (37.5-50.1); Hemoglobin 11.8 g/dL (12.9-16.9); Immature Granulocytes % 0.7 % (0-4); Immature Platelets 29.7 % (1.1-6.1); Lymphocytes # 2.1 K/mcL (0.6-4.6); Lymphocytes % 22.5 %; Mean Corpuscular HGB Conc 32.6 g/dL (31.6-35.5); Mean Corpuscular Volume 87.4 fL (83.0-100.0); Monocytes # 0.3 K/mcL (0.0-1.3); Monocytes % 3.1 %; Red Blood Count 4.14 M/mcL (4.19-5.50); Segmented Neutrophils % 73.3 %; White Blood Count 9.5 K/mcL (4.3-11.1)
[2019-09-21 06:14] LABS: Platelet Count 57 K/mcL (140-400)
[2019-09-21 06:17] LABS: INR 3.2; Prothrombin Time 36.6 Seconds (9.4-12.1)
[2019-09-21 06:42] LABS: Calcium 7.8 mg/dL (8.6-10.3); Potassium 3.9 mEq/L (3.5-5.1)
[2019-09-21] MEDS: Budesonide/Formoterol 160/4.5 1 PUFF INH IH SCH ×2 (07:50→19:39)
[2019-09-21] MEDS: Isosorbide MONOnitrate (24 HR) 60 MG TAB.ER.24H PO SCH (08:28)
[2019-09-21 10:17] LABS: Digoxin 1.4 ng/mL (0.8-2.0); Magnesium 1.9 mg/dL (1.6-2.6); Phosphorous 2.4 mg/dL (2.7-4.5)
[2019-09-21] MEDS: Azithromycin 500 MG in 0.9 % Sodium Chloride 250 ML IVPB SCH (12:10)
[2019-09-21] MEDS: cefTRIAXone 1,000 MG in Water for inj. (sterile) 10 ML IVP SCH (12:10)
[2019-09-21] MEDS ORDERED: polyethylene glycoL 3350 17 GM POWD.PACK PO ONE (12:15)
[2019-09-21] MEDS ORDERED: Warfarin perPT PO PRN (18:00)
[2019-09-21] MEDS: MethylPREDNISolone 40 MG/ML VIAL IVP SCH (21:44)
[2019-09-22 03:14] LABS: Kappa Qnt Free Light Chains 69.76 mg/L (3.30-19.40); Lambda Qnt Free Light Chains 72.29 mg/L (5.71-26.30)
[2019-09-22 05:13] LABS: Hemoglobin 12.3 g/dL (12.9-16.9); Mean Platelet Volume 14.5 fL (9.4-12.4); Segmented Neutrophils % 69.3 %
[2019-09-22 05:14] LABS: Basophils % 0.4 %; Hematocrit 36.8 % (37.5-50.1); Immature Granulocytes % 0.4 % (0-4); Immature Platelets 31.5 % (1.1-6.1); Lymphocytes # 2.7 K/mcL (0.6-4.6); Lymphocytes % 28.1 %; Mean Corpuscular HGB Conc 33.4 g/dL (31.6-35.5); Mean Corpuscular Hemoglobin 28.9 pg (28.0-33.3); Mean Corpuscular Volume 86.6 fL (83.0-100.0); Monocytes # 0.2 K/mcL (0.0-1.3); Monocytes % 1.8 %; Neutrophils # 6.6 K/mcL (1.6-8.9); Red Blood Count 4.25 M/mcL (4.19-5.50); Red Cell Distribution Width 15.9 % (11.5-14.5); White Blood Count 9.5 K/mcL (4.3-11.1)
[2019-09-22 05:16] LABS: INR 2.2; Platelet Count 67 K/mcL (140-400); Prothrombin Time 24.6 Seconds (9.4-12.1)
[2019-09-22 05:32] LABS: Potassium 4.3 mEq/L (3.5-5.1)
[2019-09-22 05:46] LABS: Platelet Estimate Decreased (Normal); Poikilocytosis 1+ (Not Present)
[2019-09-22] MEDS: Isosorbide MONOnitrate (24 HR) 60 MG TAB.ER.24H PO SCH (08:02)
[2019-09-22] MEDS: MethylPREDNISolone 40 MG/ML VIAL IVP SCH ×2 (08:02→22:25)
[2019-09-22] MEDS ORDERED: polyethylene glycoL 3350 17 GM POWD.PACK PO ONE (09:28)
[2019-09-22] MEDS ORDERED: Furosemide 40 MG/4 ML VIAL IVP ONE (09:28)
[2019-09-22] MEDS: Budesonide/Formoterol 160/4.5 1 PUFF INH IH SCH ×2 (10:56→20:17)
[2019-09-22] MEDS: cefTRIAXone 1,000 MG in Water for inj. (sterile) 10 ML IVP SCH (12:42)
[2019-09-22] MEDS: Azithromycin 500 MG in 0.9 % Sodium Chloride 250 ML IVPB SCH (12:43)
[2019-09-22] MEDS ORDERED: *HR* Warfarin 1 MG TABLET PO ONE (18:00)
[2019-09-22] MEDS ORDERED: polyethylene glycoL 3350 17 GM POWD.PACK PO PRN (22:32)
[2019-09-23 03:14] LABS: INR 2.4; Prothrombin Time 27.4 Seconds (9.4-12.1)
[2019-09-23 04:12] LABS: Alpha 2 Globulin (PEP) 1.11 g/dL (0.48-1.05); Beta Globulin (PEP) 0.72 g/dL (0.48-1.10)
[2019-09-23 07:43] LABS: Hemoglobin 11.7 g/dL (12.9-16.9); Red Cell Distribution Width 15.9 % (11.5-14.5)
[2019-09-23 07:45] LABS: Basophils % 0.1 %; Hematocrit 35.4 % (37.5-50.1); Immature Granulocytes % 0.6 % (0-4); Immature Platelets 31.2 % (1.1-6.1); Lymphocytes # 4.7 K/mcL (0.6-4.6); Lymphocytes % 30.6 %; Mean Corpuscular HGB Conc 33.1 g/dL (31.6-35.5); Mean Corpuscular Hemoglobin 28.4 pg (28.0-33.3); Mean Corpuscular Volume 85.9 fL (83.0-100.0); Monocytes % 2.9 %; Neutrophils # 10.1 K/mcL (1.6-8.9); Red Blood Count 4.12 M/mcL (4.19-5.50); Segmented Neutrophils % 65.8 %; White Blood Count 15.3 K/mcL (4.3-11.1)
[2019-09-23 07:46] LABS: Monocytes # 0.4 K/mcL (0.0-1.3); Platelet Count 87 K/mcL (140-400)
[2019-09-23 08:02] LABS: Calcium 8.1 mg/dL (8.6-10.3); Potassium 3.7 mEq/L (3.5-5.1)
[2019-09-23 08:36] LABS: Anisocytosis 1+ (Not Present); Platelet Estimate Decreased (Normal)
[2019-09-23] MEDS: MethylPREDNISolone 40 MG/ML VIAL IVP SCH (09:21)
[2019-09-23] MEDS: Isosorbide MONOnitrate (24 HR) 60 MG TAB.ER.24H PO SCH (09:21)
[2019-09-23] MEDS: Budesonide/Formoterol 160/4.5 1 PUFF INH IH SCH (10:40)
[2019-09-23] MEDS ORDERED: Azithromycin 250 MG TABLET PO SCH (11:00)
[2019-09-23 11:10] VITALS: BP 115/60
[2019-09-23] MEDS: cefTRIAXone 1,000 MG in Water for inj. (sterile) 10 ML IVP SCH (11:32)
[2019-09-23 11:59] LABS: IFE Reflexed NOT DONE
[2019-09-23] MEDS ORDERED: *HR* Warfarin 1 MG TABLET PO ONE (18:00)
== END 2019-09-23 15:24 | disposition home or self-care (01) | DRG 291 ==
LOC: EMEROOARM 16:25 → 3BNU 16:25 → 2NENU 16:25 → SUATTDRO 22:00 → 2NENU 22:59 → 2ANU 09-20 21:50
PROVIDERS: ADMIT Internal Medicine; ATTEND Family Medicine

== ENCOUNTER 2019-10-24 15:36 | Inpatient (IN) ==
[2019-10-24] MEDS ORDERED: *HR* Metoprolol 5 MG/5 ML VIAL IVP ONE ×2 (16:04→18:35)
[2019-10-24 16:22] LABS: Basophils % 0.3 %; Eosinophils # 0.1 K/mcL (0.0-0.6); Eosinophils % 0.8 %; Hematocrit 41.6 % (37.5-50.1); Hemoglobin 12.8 g/dL (12.9-16.9); Immature Granulocytes % 0.7 % (0-4); Lymphocytes # 2.2 K/mcL (0.6-4.6); Lymphocytes % 24.6 %; Mean Corpuscular HGB Conc 30.8 g/dL (31.6-35.5); Mean Corpuscular Hemoglobin 29.2 pg (28.0-33.3); Mean Corpuscular Volume 94.8 fL (83.0-100.0); Mean Platelet Volume 11.5 fL (9.4-12.4); Monocytes # 0.5 K/mcL (0.0-1.3); Monocytes % 5.5 %; Neutrophils # 6.1 K/mcL (1.6-8.9); Platelet Count 227 K/mcL (140-400); Red Blood Count 4.39 M/mcL (4.19-5.50); Red Cell Distribution Width 17.7 % (11.5-14.5); Segmented Neutrophils % 68.1 %
[2019-10-24 16:43] LABS: BUN/Creatinine Ratio 13 (6-26); Blood Urea Nitrogen 23 mg/dL (8-23); Calcium 8.9 mg/dL (8.6-10.3); Carbon Dioxide 28 mEq/L (23-29); Chloride 104 mEq/L (98-107); Glucose 194 mg/dL (70-105); Osmolality,Calculated 297 (280-300); Potassium 4.1 mEq/L (3.5-5.1); Sodium 139 mEq/L (136-145); Troponin I < 0.03 ng/mL (< 0.04); eGFR For African Americans 46 (> 60); eGFR For Non-African Americans 38 (> 60)
[2019-10-24] MEDS ORDERED: Albumin 25% 25gram/100mL 25 GM/100 ML IV.SOLN IVPB ONE (18:35)
[2019-10-24] MEDS ORDERED: Furosemide 40 MG/4 ML VIAL IVP ONE (18:35)
[2019-10-24] MEDS: Budesonide/Formoterol 160/4.5 1 PUFF INH IH SCH (19:57)
[2019-10-24 20:52] LABS: INR 1.7; Prothrombin Time 19.6 Seconds (9.4-12.1)
[2019-10-24] MEDS ORDERED: *HR* Warfarin 2.5 MG TABLET PO ONE (22:24)
[2019-10-24 22:40] LABS: Adenovirus Not Detected (Not Detect); Coronavirus 229E Not Detected (Not Detect); Coronavirus HKU1 Not Detected (Not Detect); Coronavirus NL63 Not Detected (Not Detect); Coronavirus OC43 Not Detected (Not Detect); Human Metapneumovirus Not Detected (Not Detect); Human Rhinovirus/Enterovirus Not Detected (Not Detect); Influenza A Subtype 2009 H1 Not Detected (Not Detect); Influenza B Not Detected (Not Detect); Parainfluenza Virus 1 Not Detected (Not Detect); Parainfluenza Virus 2 Not Detected (Not Detect)
[2019-10-24 22:41] LABS: Bordetella Pertussis Not Detected (Not Detect); Chlamydophila pneumoniae Not Detected (Not Detect); Mycoplasma pneumoniae Not Detected (Not Detect); Parainfluenza Virus 3 Not Detected (Not Detect); Parainfluenza Virus 4 Not Detected (Not Detect); Respiratory Syncytial Virus Not Detected (Not Detect)
[2019-10-25 05:54] LABS: Basophils % 0.3 %; Eosinophils # 0.2 K/mcL (0.0-0.6); Eosinophils % 1.4 %; Hematocrit 39.9 % (37.5-50.1); Hemoglobin 12.5 g/dL (12.9-16.9); Immature Granulocytes % 0.5 % (0-4); Lymphocytes # 2.9 K/mcL (0.6-4.6); Mean Corpuscular HGB Conc 31.3 g/dL (31.6-35.5); Mean Corpuscular Hemoglobin 29.3 pg (28.0-33.3); Mean Corpuscular Volume 93.4 fL (83.0-100.0); Mean Platelet Volume 11.5 fL (9.4-12.4); Monocytes # 0.8 K/mcL (0.0-1.3); Monocytes % 7.8 %; Neutrophils # 6.5 K/mcL (1.6-8.9); Platelet Count 208 K/mcL (140-400); Red Blood Count 4.27 M/mcL (4.19-5.50); Red Cell Distribution Width 17.8 % (11.5-14.5); White Blood Count 10.5 K/mcL (4.3-11.1)
[2019-10-25 05:55] LABS: INR 1.8; Prothrombin Time 20.1 Seconds (9.4-12.1)
[2019-10-25 06:11] LABS: Calcium 9.1 mg/dL (8.6-10.3); Potassium 3.7 mEq/L (3.5-5.1)
[2019-10-25] MEDS: Cholecalciferol (D-3) 1,000 UNIT (25MCG) TABLET PO SCH (08:26)
[2019-10-25] MEDS: DilTIAZem CD (24hr) 180 MG CAP.ER.24H PO SCH (09:39)
[2019-10-25] MEDS: Bumetanide 1 MG/4 ML VIAL IVP SCH ×2 (09:39→17:13)
[2019-10-25] MEDS: Budesonide/Formoterol 160/4.5 1 PUFF INH IH SCH ×2 (10:58→19:49)
[2019-10-25] MEDS ORDERED: Warfarin perPT PO PRN (18:00)
[2019-10-25] MEDS ORDERED: *HR* Warfarin 2.5 MG TABLET PO ONE (18:00)
[2019-10-25] MEDS ORDERED: *HR* Warfarin 2.5 MG TABLET PO SCH (18:33)
[2019-10-25] MEDS: Mirtazapine 15 MG TABLET PO SCH (20:48)
[2019-10-26 03:21] LABS: Basophils % 0.3 %; Eosinophils # 0.2 K/mcL (0.0-0.6); Eosinophils % 1.8 %; Hematocrit 38.4 % (37.5-50.1); Hemoglobin 12.7 g/dL (12.9-16.9); Immature Granulocytes % 0.4 % (0-4); Lymphocytes # 2.8 K/mcL (0.6-4.6); Lymphocytes % 26.5 %; Mean Corpuscular HGB Conc 33.1 g/dL (31.6-35.5); Mean Corpuscular Hemoglobin 30.5 pg (28.0-33.3); Mean Corpuscular Volume 92.1 fL (83.0-100.0); Mean Platelet Volume 11.6 fL (9.4-12.4); Monocytes # 0.8 K/mcL (0.0-1.3); Monocytes % 7.8 %; Neutrophils # 6.6 K/mcL (1.6-8.9); Platelet Count 209 K/mcL (140-400); Red Blood Count 4.17 M/mcL (4.19-5.50); Red Cell Distribution Width 17.6 % (11.5-14.5); Segmented Neutrophils % 63.2 %; White Blood Count 10.4 K/mcL (4.3-11.1)
[2019-10-26 03:29] LABS: INR 2.4
[2019-10-26 03:40] LABS: Albumin 3.4 g/dL (3.5-5.7); Albumin/Globulin Ratio 1.2 (1.1-2.2); Bilirubin,Total 1.3 mg/dL (0.3-1.0); Calcium 8.6 mg/dL (8.6-10.3); Globulin 2.8 g/dL (2.4-3.5); Magnesium 1.8 mg/dL (1.6-2.6); Phosphorous 3.7 mg/dL (2.7-4.5); Potassium 3.3 mEq/L (3.5-5.1); Total Protein 6.2 g/dL (6.4-8.9)
[2019-10-26] MEDS: Bumetanide 1 MG/4 ML VIAL IVP SCH (08:00)
[2019-10-26] MEDS: DilTIAZem CD (24hr) 180 MG CAP.ER.24H PO SCH (08:00)
[2019-10-26] MEDS: Cholecalciferol (D-3) 1,000 UNIT (25MCG) TABLET PO SCH (08:00)
[2019-10-26] MEDS: Budesonide/Formoterol 160/4.5 1 PUFF INH IH SCH ×2 (10:53→20:02)
[2019-10-26] MEDS ORDERED: *HR* Warfarin 2.5 MG TABLET PO ONE (18:00)
[2019-10-26] MEDS: Mirtazapine 15 MG TABLET PO SCH (20:12)
[2019-10-27 01:23] LABS: Calcium 8.8 mg/dL (8.6-10.3); Magnesium 1.9 mg/dL (1.6-2.6); Phosphorous 3.8 mg/dL (2.7-4.5); Potassium 3.6 mEq/L (3.5-5.1)
[2019-10-27 06:53] VITALS: BP 116/67
[2019-10-27] MEDS: Budesonide/Formoterol 160/4.5 1 PUFF INH IH SCH (07:35)
[2019-10-27 07:38] LABS: INR 2.8; Prothrombin Time 31.9 Seconds (9.4-12.1)
[2019-10-27] MEDS ORDERED: Furosemide 20 MG TABLET PO SCH (09:00)
[2019-10-27] MEDS: DilTIAZem CD (24hr) 180 MG CAP.ER.24H PO SCH (09:09)
[2019-10-27] MEDS: Cholecalciferol (D-3) 1,000 UNIT (25MCG) TABLET PO SCH (09:09)
== END 2019-10-27 13:14 | disposition home health service (06) | DRG 291 ==
LOC: 2NENU 15:36 → EMEROOARM 15:36 → 2NENU 18:42 → SUATTDRO 10-25 08:42 → 2ANU 10-26 21:18
PROVIDERS: ADMIT Internal Medicine; ATTEND Internal Medicine

== ENCOUNTER 2021-02-15 19:46 | Inpatient (IN) ==
[2021-02-15] MEDS ORDERED: Isovue-370 500 ML BOTTLE IVP ONE (22:03)
[2021-02-15 22:37] LABS: Eosinophils # 0.2 K/mcL (0.0-0.6); Hematocrit 24.9 % (37.5-50.1); Hemoglobin 8.4 g/dL (12.9-16.9); Mean Corpuscular HGB Conc 33.7 g/dL (31.6-35.5); Mean Corpuscular Hemoglobin 32.2 pg (28.0-33.3); Mean Corpuscular Volume 95.4 fL (83.0-100.0); Mean Platelet Volume 12.2 fL (9.4-12.4); Nucleated Red Blood Cells 0.6 /100 WBC (0); Platelet Count 282 K/mcL (140-400); Red Blood Count 2.61 M/mcL (4.19-5.50); White Blood Count 11.1 K/mcL (4.3-11.1)
[2021-02-15 22:53] LABS: Calcium 8.5 mg/dL (8.6-10.3); Potassium 4.3 mEq/L (3.5-5.1)
[2021-02-15 23:05] LABS: Troponin I 0.06 ng/mL (< 0.04)
[2021-02-15 23:21] LABS: Anisocytosis 2+ (Not Present); Lymphocytes # 0.6 K/mcL (0.6-4.6); Monocytes # 0.7 K/mcL (0.0-1.3); Neutrophils # 9.6 K/mcL (1.6-8.9)
[2021-02-15 23:30] LABS: Prothrombin Time 33.3 Seconds (9.4-12.1)
[2021-02-16 00:15] LABS: Adenovirus Not Detected (Not Detect); Bordetella Pertussis Not Detected (Not Detect); Chlamydophila pneumoniae Not Detected (Not Detect); Coronavirus 229E Not Detected (Not Detect); Coronavirus HKU1 Not Detected (Not Detect); Coronavirus NL63 Not Detected (Not Detect); Coronavirus OC43 Not Detected (Not Detect); Human Metapneumovirus Not Detected (Not Detect); Human Rhinovirus/Enterovirus Not Detected (Not Detect); Influenza A Subtype 2009 H1 Not Detected (Not Detect); Influenza B Not Detected (Not Detect); Mycoplasma pneumoniae Not Detected (Not Detect); Parainfluenza Virus 1 Not Detected (Not Detect); Parainfluenza Virus 2 Not Detected (Not Detect); Parainfluenza Virus 3 Not Detected (Not Detect); Parainfluenza Virus 4 Not Detected (Not Detect); Respiratory Syncytial Virus Not Detected (Not Detect); SARS-CoV-2 Not Detected (Not Detect)
[2021-02-16] MEDS ORDERED: Furosemide 40 MG/4 ML VIAL IVP ONE (01:34)
[2021-02-16] MEDS ORDERED: Ondansetron ODT 4 MG TAB.RAPDIS SL ONE (03:13)
[2021-02-16] MEDS ORDERED: Naloxone 0.4 MG/ML INJ IVP PRN (04:48)
[2021-02-16] MEDS ORDERED: Ondansetron ODT 4 MG TAB.RAPDIS SL PRN (04:48)
[2021-02-16 06:19] LABS: Bilirubin,Urine Negative (Negative); Blood,Urine Negative (Negative); Clarity,Urine Clear (Clear); Color,Urine Colorless (Yellow); Glucose,Urine (UA) Normal (Normal); Ketones,Urine Negative (Negative); Leukocyte Esterase,Urine Negative (Negative); Nitrite,Urine Negative (Negative); Protein,Urine Negative (Neg-Trace); Specific Gravity,Urine 1.011 (1.010-1.025); Urobilinogen,Urine Normal (Normal)
[2021-02-16 06:35] LABS: Hematocrit 25.3 % (37.5-50.1); Hemoglobin 8.5 g/dL (12.9-16.9); Mean Corpuscular HGB Conc 33.6 g/dL (31.6-35.5); Mean Corpuscular Hemoglobin 31.1 pg (28.0-33.3); Mean Corpuscular Volume 92.7 fL (83.0-100.0); Mean Platelet Volume 12.2 fL (9.4-12.4); Nucleated Red Blood Cells 0.7 /100 WBC (0); Platelet Count 285 K/mcL (140-400); Red Blood Count 2.73 M/mcL (4.19-5.50); White Blood Count 12.1 K/mcL (4.3-11.1)
[2021-02-16 06:51] LABS: Albumin 2.5 g/dL (3.5-5.7); Bilirubin,Total 0.9 mg/dL (0.3-1.0); Calcium 8.2 mg/dL (8.6-10.3); Globulin 2.4 g/dL (2.4-3.5); Magnesium 1.9 mg/dL (1.6-2.6); Potassium 3.7 mEq/L (3.5-5.1); Total Protein 4.9 g/dL (6.4-8.9)
[2021-02-16 07:09] LABS: Lymphocytes # 0.2 K/mcL (0.6-4.6); Monocytes # 0.7 K/mcL (0.0-1.3); Neutrophils # 11.1 K/mcL (1.6-8.9); Platelet Estimate Normal (Normal); Polychromasia 1+ (Not Present); Toxic Granulation Present (Not Present)
[2021-02-16 07:10] LABS: Anisocytosis 1+ (Not Present)
[2021-02-16] MEDS: Piperacillin/Tazobactam 3.375 GM in 0.9 % Sodium Chloride Mini Bag 100 ML IVPB SCH ×2 (10:14→16:31)
[2021-02-16] MEDS: Cyanocobalamin (B-12) 1,000 MCG TABLET PO SCH (14:30)
[2021-02-16 15:12] LABS: Prothrombin Time 33.7 Seconds (9.4-12.1)
[2021-02-16] MEDS ORDERED: Warfarin perPT PO PRN (18:00)
[2021-02-16] MEDS ORDERED: *HR* Warfarin 0.5 MG TABLET PO ONE (18:00)
[2021-02-16] MEDS: Furosemide 20 MG/2 ML VIAL IVP SCH (22:09)
[2021-02-17] MEDS: Piperacillin/Tazobactam 3.375 GM in 0.9 % Sodium Chloride Mini Bag 100 ML IVPB SCH ×3 (00:24→16:08)
[2021-02-17 06:05] LABS: Hematocrit 28.6 % (37.5-50.1); Hemoglobin 9.6 g/dL (12.9-16.9); Mean Corpuscular HGB Conc 33.6 g/dL (31.6-35.5); Mean Corpuscular Hemoglobin 31.7 pg (28.0-33.3); Mean Corpuscular Volume 94.4 fL (83.0-100.0); Platelet Count 289 K/mcL (140-400); Red Blood Count 3.03 M/mcL (4.19-5.50); Red Cell Distribution Width 16.7 % (11.5-14.5); White Blood Count 11.7 K/mcL (4.3-11.1)
[2021-02-17 06:12] LABS: INR 3.6; Prothrombin Time 39.8 Seconds (9.4-12.1)
[2021-02-17 06:29] LABS: % Iron Saturation 19 % (20-55); Iron 29 mcg/dL (65-175); Transferrin 111 mg/dL (203-362)
[2021-02-17 06:52] LABS: Ferritin > 1500 ng/mL (20-250)
[2021-02-17] MEDS ORDERED: Ondansetron ODT 4 MG TAB.RAPDIS SL PRN (07:55)
[2021-02-17] MEDS ORDERED: Nitroglycerin 0.4 MG TAB.SUBL SL PRN (07:55)
[2021-02-17] MEDS ORDERED: Diphenoxylate/Atropine 1 TAB TABLET PO PRN (07:55)
[2021-02-17] MEDS ORDERED: Iron Sucrose Complex 400 MG in 0.9 % Sodium Chloride 250 ML IVPB ONE (07:56)
[2021-02-17] MEDS: Cholecalciferol (D-3) 1,000 UNIT (25MCG) TABLET PO SCH (09:00)
[2021-02-17] MEDS: Cyanocobalamin (B-12) 1,000 MCG TABLET PO SCH (09:01)
[2021-02-17] MEDS: Isosorbide MONOnitrate (24 HR) 60 MG TAB.ER.24H PO SCH (09:01)
[2021-02-17] MEDS: Furosemide 20 MG/2 ML VIAL IVP SCH ×2 (09:01→22:03)
[2021-02-17] MEDS: DilTIAZem CD (24hr) 180 MG CAP.ER.24H PO SCH (09:12)
[2021-02-17 10:39] LABS: Calcium 8.7 mg/dL (8.6-10.3); Potassium 3.7 mEq/L (3.5-5.1)
[2021-02-18] MEDS: Piperacillin/Tazobactam 3.375 GM in 0.9 % Sodium Chloride Mini Bag 100 ML IVPB SCH ×2 (00:07→09:08)
[2021-02-18 07:58] LABS: INR 3.8; Prothrombin Time 42.3 Seconds (9.4-12.1)
[2021-02-18] MEDS: Isosorbide MONOnitrate (24 HR) 60 MG TAB.ER.24H PO SCH (09:09)
[2021-02-18] MEDS: DilTIAZem CD (24hr) 180 MG CAP.ER.24H PO SCH (09:09)
[2021-02-18] MEDS: Cyanocobalamin (B-12) 1,000 MCG TABLET PO SCH (09:09)
[2021-02-18] MEDS: Cholecalciferol (D-3) 1,000 UNIT (25MCG) TABLET PO SCH (09:09)
[2021-02-18] MEDS: Furosemide 20 MG/2 ML VIAL IVP SCH (09:10)
[2021-02-18 11:03] VITALS: BP 109/76; PULSE 122; TEMP 97.5; O2SAT 97
== END 2021-02-18 14:40 | disposition home or self-care (01) | DRG 871 ==
LOC: CDU 19:46 → EMEROOARM 19:46 → SUATTDRO 02-16 03:21 → CDU 02-16 03:58
PROVIDERS: ADMIT Internal Medicine; ATTEND Internal Medicine